=== PATIENT | male | born 1960 | race Caucasian/White ===

== ENCOUNTER 2020-04-06 15:05 | Outpatient (CLI) | payer OTHER, SELFPAY ==
[2020-04-06 15:54] LABS: Alanine Aminotransferase 194 U/L (4-50); Albumin Level 4.3 g/dL (3.5-5.1); Alkaline Phosphatase 169 U/L (38-126); Anion Gap 6 mmol/L (8-16); Aspartate Amino Transferase 115 U/L (17-59); Bilirubin,Total 1.3 mg/dL (0.2-1.3); Blood Urea Nitrogen 13 mg/dL (9-20); Carbon Dioxide 32 mmol/L (22-30); Chloride 98 mmol/L (98-107); Estimated Glomerular Filt Rate > 60; Glucose 353 mg/dL (75-110); Potassium 4.9 mmol/L (3.4-5.0); Sodium 136 mmol/L (137-145)
== END 2020-04-06 15:06 | disposition home or self-care (01) ==
PROVIDERS: PCP Family Medicine; Visit Provider Physician Assistant
DX: R73.01 Impaired fasting glucose (principal)
CPT/HCPCS: 36415; 80053

== ENCOUNTER 2020-04-13 09:23 | Outpatient (CLI) | payer OTHER, SELFPAY ==
[2020-04-13 09:54] LABS: Hemoglobin A1C 9.8 % (<5.7)
== END 2020-04-13 09:24 | disposition home or self-care (01) ==
LOC: ANHLAB 09:25
PROVIDERS: PCP Family Medicine; Visit Provider Physician Assistant
DX: E13.65 Other specified diabetes mellitus with hyperglycemia (principal)
CPT/HCPCS: 36415; 83036

== ENCOUNTER 2020-09-19 15:05 | Outpatient (CLI) | payer OTHER, SELFPAY ==
[2020-09-19 15:25] LABS: Basophils Absolute Auto 0.1 K/mm3 (0.0-0.1); Basophils Percent Auto 0.6 % (0.2-1.2); Eosinophils Absolute Auto 0.2 K/mm3 (0-0.3); Eosinophils Percent Auto 2.4 % (0-4.4); Hematocrit 46.2 % (42.0-52.0); Hemoglobin 15.2 g/dL (14.0-18.0); Immature Granulocyte Absolute 0.02 K/mm3 (0.00-0.031); Immature Granulocyte Percent A 0.2 % (0-0.5); Lymphocytes Absolute Auto 2.25 K/mm3 (0.9-3.2); Mean Corpuscular HGB Conc 32.9 g/dl (32-36); Mean Corpuscular Hemoglobin 24.7 pg (26-34); Mean Platelet Volume 10.2 fl (7.4-10.4); Monocytes Absolute Auto 0.9 K/mm3 (0.1-0.6); Monocytes Percent Auto 9.9 % (2.6-8.5); Neutrophils Absolute Auto 5.9 K/mm3 (1.3-6.7); Neutrophils Percent Auto 62.9 % (45.5-73.1); Platelet Count Result 181 k/mm3 (150-375); Red Blood Count 6.16 M/mm3 (4.6-6.20); Red Cell Distribution Width 14.9 % (11.5-14.5); White Blood Count 9.4 K/mm3 (4.5-10.0)
[2020-09-19 15:37] LABS: Prothrombin Time 13.4 Seconds (11.1-14.7)
[2020-09-19 15:38] LABS: Partial Thromboplastin Time 34.9 SECONDS (22.3-36.8)
== END 2020-09-19 15:06 | disposition home or self-care (01) ==
PROVIDERS: PCP Physician Assistant; Visit Provider Anesthesiology
DX: I25.10 Atherosclerotic heart disease of native coronary artery without angina pectoris (principal); M54.16 Radiculopathy, lumbar region; Z51.81 Encounter for therapeutic drug level monitoring; Z79.899 Other long term (current) drug therapy; R07.89 Other chest pain; Z00.00 Encounter for general adult medical examination without abnormal findings; Z79.1 Long term (current) use of non-steroidal anti-inflammatories (NSAID)
CPT/HCPCS: 36415; 85025; 85610; 85730

== ENCOUNTER 2021-03-09 11:44 | Outpatient (CLI) | payer OTHER, SELFPAY ==
[2021-03-09 12:12] LABS: Hematocrit 48.9 % (42.0-52.0); Hemoglobin 15.9 g/dL (14.0-18.0); Mean Corpuscular HGB Conc 32.5 g/dl (32-36); Mean Corpuscular Hemoglobin 26.1 pg (26-34); Mean Corpuscular Volume 80.2 fl (80-100); Mean Platelet Volume 10.2 fl (7.4-10.4); Platelet Count Result 150 k/mm3 (150-375); Red Cell Distribution Width 14.3 % (11.5-14.5); White Blood Count 7.8 K/mm3 (4.5-10.0)
[2021-03-09 12:25] LABS: Alanine Aminotransferase 25 U/L (4-50); Albumin Level 4.6 g/dL (3.5-5.1); Alkaline Phosphatase 96 U/L (38-126); Anion Gap 10 mmol/L (8-16); Aspartate Amino Transferase 26 U/L (17-59); Bilirubin,Total 0.9 mg/dL (0.2-1.3); Blood Urea Nitrogen 19 mg/dL (9-20); Calcium 9.8 mg/dL (8.4-10.2); Carbon Dioxide 25 mmol/L (22-30); Chloride 100 mmol/L (98-107); Estimated Glomerular Filt Rate > 60; Glucose 216 mg/dL (65-110); Potassium 3.9 mmol/L (3.4-5.0); Sodium 135 mmol/L (137-145)
[2021-03-13 20:36] LABS: Alpha Fetoprotein Tumor Marker 2.6 ng/mL (<6.1)
== END 2021-03-09 11:45 | disposition home or self-care (01) ==
PROVIDERS: PCP Physician Assistant
DX: B18.2 Chronic viral hepatitis C (principal)
CPT/HCPCS: 36415; 80053; 82105; 85027

== ENCOUNTER 2021-06-24 11:26 | Emergency (ER) | payer OTHER, SELFPAY ==
--- NOTE | ~2021-06-24 | XR_ITS ---
EXAMINATION: XR chest 2V DATE: 06/24/2021 12:55 INDICATION: Congestion. TECHNIQUE: Frontal and lateral views of the chest were obtained on 3 radiographs. COMPARISON: None. FINDINGS: The chest demonstrates clear lungs without pneumonia, pleural effusion, or pneumothorax. Th e heart size is normal. There are changes of anterior fusion procedure in cervical spine. IMPRESSION: 1. No acute cardiopulmonary disease. Reviewed, dictated and finalized at location B. [employer] PRO[employer] MANAGER
[2021-06-24 11:45] VITALS: BP 149/129; PULSE 102; RESP 18; TEMP 37.9; O2SAT 96
[2021-06-24 12:00] VITALS: BP 172/110
[2021-06-24 12:05] VITALS: PULSE 102; RESP 18; TEMP 37.9; O2SAT 99
[2021-06-24] MEDS: ACETAMINOPHEN 500 MG TABLET 1000 MG PO (12:05)
[2021-06-24] MEDS: IPRATROPIUM BR 0.02% INH SOLN 0.5 MG/2.5 ML VIAL INHALATION (12:15)
[2021-06-24] MEDS: ALBUTEROL SULFATE NEB 2.5 MG/3 ML INH INHALATION (12:15)
[2021-06-24] MEDS: predniSONE 20 MG TABLET 60 MG PO (12:32)
--- NOTE | 2021-06-24 12:33 | ED.URI ---
HPI - URI/Sore Throat General Chief Complaint: Upper Respiratory Infection Stated Complaint: Congestion Time Seen by Provider: 06/24/21 12:33 Source: patient, RN notes reviewed and old records reviewed Mode of arrival: ambulatory Limitations: no limitations History of Present Illness HPI Narrative: 60-year-old male presents to the [facility] with complaints of cough, shortness of breath. Has a history of chronic bronchitis and pneumonia. Denies chest pain or abdominal pain. Has not checked his temperature. Patient is currently a smoker. MD elicited complaint: fever and cough Related Data Allergies Allergy/AdvReac Type Severity Reaction Status Date / Time No Known Allergies Verified 06/24/21 11:41 Review of Systems Review of Systems: All systems reviewed & are unremarkable except as noted in HPI and below Constitutional: Constitutional: Reports no additional constitutional complaints, Denies chills and Denies fever(s) Eyes: Eyes: Reports no additional eye complaints ENT: Reports system reviewed and no additional complaints, except as documented Cardiovascular: Cardiovascular: Reports no additional cardiovascular complaints and Denies chest pain Respiratory: Respiratory: Reports as per HPI, Reports chest congestion, Reports cough, Reports dyspnea and Reports wheezing Gastrointestinal: Gastrointestinal: Reports no additional gastrointestinal complaints Genitourinary: Genitourinary: Reports no additional male genitourinary complaints Musculoskeletal: Musculoskeletal: Reports no additional musculoskeletal complaints Integumentary/Breasts: Skin/Breast: Reports system reviewed and no additional complaints, except as docu Neurologic: Reports system reviewed and no additional complaints, except as documented Psychiatric: Psychiatric: Reports no additional psychiatric complaints Allergic/Immunologic: Allergic/Immunologic: Reports no additional allergic/immunologic complaints PMFSH Past Medical History Medical History Acid reflux BMI 34.0-34.9,adult Chronic GERD Chronic left shoulder pain Chronic neck pain with history of cervical spinal surgery Colon cancer screening Elevated serum glucose Hepatitis C History of alcoholism History of anemia History of hepatitis C History of illicit drug use Hypertension Hypogonadism in male Lung nodule Narcotic dependence, episodic use Osteoarthritis of both knees Peptic ulcer disease Primary hypertension Prostate cancer screening Tobacco abuse Surgical History Surgical History Hx of cervical spine surgery Hx of knee surgery Hx of shoulder surgery Left & Right Shoulders Family History Family History Father Diabetes mellitus Mother Cancer Social History Social History Smoking status: Current every day smoker Tobacco type: cigarettes Alcohol intake: former Alcohol use details: stopped drinking in 2007 Substance use: former Substance use type: former substance user Last use: 2007 Gender identity (if verbalized by the patient): Male Comments At the time of my signature, I reviewed and agree with the nursing past medical, surgical, social, and family history. There is no relevant family history pertinent to the patient complaint. Exam Const: General: ill appearing acutely and chronically Nutritional Appearance: well nourished Orientation/consciousness: patient oriented x3 Limitations: no limitations HENMT: Head: normal to inspection Ears: external ears normal, TM's normal bilaterally and EAC's normal Eyes: Pupils: Equal, round and reactive pupils present Neck: Neck: normal visual inspection, no lymphadenopathy and no meningeal signs Chest: Chest palpation & inspection: normal inspection of the chest Resp: Effort & Inspection: normal
[2021-06-24 12:45] VITALS: PULSE 100; RESP 18; O2SAT 99
[2021-06-24 13:20] VITALS: TEMP 37.6
== END 2021-06-24 13:25 | disposition home or self-care (01) ==
PROVIDERS: Emergency Provider Nurse Practitioner; PCP Family Medicine
DX: J40 Bronchitis, not specified as acute or chronic (principal); F17.210 Nicotine dependence, cigarettes, uncomplicated; K21.9 Gastro-esophageal reflux disease without esophagitis; I10 Essential (primary) hypertension; M17.0 Bilateral primary osteoarthritis of knee
CPT/HCPCS: 71046; 87804; 94640; 99213; A9270; G0463; J7512

== ENCOUNTER 2021-09-25 09:32 | Outpatient (RCR) | payer OTHER, SELFPAY ==
[2021-09-25 09:41] VITALS: BMI 34.7
[2021-09-25 09:46] VITALS: BMI 34.7
== END 2021-12-11 07:22 | disposition home or self-care (01) ==
LOC: ANHDMC 09:32
PROVIDERS: PCP Family Medicine; Visit Provider Physician Assistant
DX: E11.65 Type 2 diabetes mellitus with hyperglycemia (principal); Z71.3 Dietary counseling and surveillance
CPT/HCPCS: 97802; 99199

== ENCOUNTER 2021-10-09 13:38 | Emergency (ER) | payer OTHER, SELFPAY ==
[2021-10-09 13:46] VITALS: BP 141/94; PULSE 86; RESP 16; TEMP 36.7; O2SAT 98
--- NOTE | 2021-10-09 13:47 | ED.ABDPAIN ---
HPI - Abdominal Pain General Chief Complaint: Abdominal Pain Stated Complaint: abd pain Time Seen by Provider: 10/09/21 13:48 Source: patient Mode of arrival: ambulatory Limitations: no limitations History of Present Illness HPI narrative: 60-year-old male with history of high blood pressure, diabetes, hepatitis C presents with complaint of epigastric, left upper quadrant and left lower quadrant pain for the last 2 to 3 weeks. Reports diarrhea that has been black then bright red blood and diarrhea and then back to having black stools. He reports decreased appetite and states that her abdomen feels bloated. Today today he has been dizzy, nauseated and sweating. All systems reviewed and negative except as noted above. Related Data Allergies Allergy/AdvReac Type Severity Reaction Status Date / Time No Known Allergies Allergy Verified 10/09/21 14:04 Review of Systems Review of Systems: CONSTITUTIONAL: Denies fever, chills, or sweats. EYES: Denies visual changes, redness, or discharge. ENT: Denies rhinorrhea, congestion, sore throat, or otalgia. CARDIOVASCULAR: Denies chest pain, palpitations, or edema. RESPIRATORY: Denies cough or dyspnea. GASTROINTESTINAL: Reports abdominal pain, nausea and diarrhea. Reports black, bright red blood stools. Denies vomiting. GENITOURINARY: Denies dysuria or hematuria. SKIN: Denies rash or itching. MUSCULOSKELETAL: Denies back pain, joint pain, or myalgia. NEUROLOGIC: Denies headache, numbness, or weakness. PSYCHIATRIC: Denies anxiety or depression. All other systems reviewed are negative, except as documented in HPI. [facility] Past Medical History Medical History Acid reflux BMI 34.0-34.9,adult Chronic GERD Chronic left shoulder pain Chronic neck pain with history of cervical spinal surgery Colon cancer screening Elevated serum glucose Hepatitis C History of alcoholism History of anemia History of hepatitis C History of illicit drug use Hypertension Hypogonadism in male Lung nodule Narcotic dependence, episodic use Osteoarthritis of both knees Peptic ulcer disease Primary hypertension Prostate cancer screening Tobacco abuse Surgical History Surgical History Hx of cervical spine surgery Hx of knee surgery Hx of shoulder surgery Left & Right Shoulders Family History Family History Father Diabetes mellitus Mother Cancer Social History Social History Tobacco type: cigarettes Alcohol intake: former Alcohol use details: stopped drinking in 2007 Substance use: former Substance use type: former substance user Last use: 2007 Gender identity (if verbalized by the patient): Male Spiritual care concerns: No Comments At time of signature, agree with nursing past medical, surgical, social and family history. There is no relevant family history pertinent to the presenting complaint. Exam Narrative: GENERAL: Patient is ill-appearing but in no distress. Patient is pale. HEAD: normocephalic, atraumatic. EYES: PERRL. Sclera clear/white. Vision is grossly intact. EARS: External ears normal, auditory canals clear and without drainage, TMs normal without perforation. Hearing grossly intact. NOSE: External nose normal with no obvious nasal discharge, nares without redness, no rhinorrhea. THROAT: Mucous membranes moist, posterior pharynx clear. NECK: Neck supple, non-tender without lymphadenopathy, masses or thyromegaly. CARDIOVASCULAR: Regular rate and rhythm without murmurs, gallops, or rubs. RESPIRATORY: Clear to auscultation. Breath sounds equal bilaterally. No wheezes, rales, or rhonchi. GASTROINTESTINAL: Abdominal tenderness to epigastric, left upper quadrant and left lower quadrant. Bowel sounds are active. No hepato-splenomegaly, or palpable masses.
== END 2021-10-09 14:03 | disposition short-term general hospital (02) ==
PROVIDERS: Emergency Provider Nurse Practitioner Family
DX: R10.13 Epigastric pain (principal); R10.12 Left upper quadrant pain; R10.32 Left lower quadrant pain; K92.1 Melena; Z87.891 Personal history of nicotine dependence; K21.9 Gastro-esophageal reflux disease without esophagitis; I10 Essential (primary) hypertension; M17.0 Bilateral primary osteoarthritis of knee
CPT/HCPCS: 99212; G0463

== ENCOUNTER 2021-10-09 14:21 | Emergency (ER) | payer OTHER, SELFPAY ==
--- NOTE | ~2021-10-09 | CT_ITS ---
EXAMINATION: CT abdomen pelvis w con EXAM DATE: 10/09/2021 16:45 INDICATION: Abdominal pain, N/V/D, cirrhosis . History of bleeding ulcers. Diarrhea. TECHNIQUE: Spiral CT of the abdomen and pelvis was performed following intravenous injection of 100 m L Omnipaque 350. Axial, coronal and sagittal images of the abdomen and pelvis were reviewed. The do se-length product (DLP) for this examination was 1427.36 mGy-cm. The exposure was tailored according to patient size (auto mA exposure control), and iterative reconstruction (ASIR) was used as addition al dose reduction technique. There is no prior study for comparison. FINDINGS: There is mild splenomegaly, spleen measuring 16 cm in craniocaudal dimension. This could be from portal hypertension. Some other evidence of portosystemic shunting. The liver, adrenal glands a nd pancreas are unremarkable. Gallbladder is unremarkable. No biliary obstruction. Portal and sple wagner veins are patent. Kidneys enhance symmetrically. There is no hydronephrosis. Scattered small re nal cysts bilaterally. Mild prostatomegaly. The bladder is unremarkable. There is no retroperitone al or pelvic lymphadenopathy. There is mild scattered arteriosclerotic disease. The appendix is normal. There is small to moderate-sized gastroesophageal hiatal hernia. There is c olonic fluid, correlate for diarrhea. No colonic wall thickening. No free intraperitoneal gas. Th e heart is normal in size. There are no pericardial or pleural effusions. The lung bases are unrema rkable. Several vertebral body hemangiomata suspected. Thoracic diffuse idiopathic skeletal hyperost osis. IMPRESSION: 1. Colonic fluid, diarrhea. Consider gastroenteritis. 2. Mild splenomegaly. Portal hypertension. 3. Small to moderate hiatal hernia. Reviewed, dictated and finalized at location A. PMENT MECHANIC SPECIALIST
[2021-10-09 14:27] VITALS: BP 144/99; PULSE 92; RESP 18; TEMP 36.8; O2SAT 98
--- NOTE | 2021-10-09 14:38 | PC.NURSE ---
pt reports that he is worried his my be possibly putting drugs in his system. wanting a drug screen done.
[2021-10-09 15:06] LABS: Add Urine Microscopic? YES; Appearance Urine Clear (Clear); Bacteria Urine Trace /hpf; Bilirubin Urine Negative (Negative); Blood Urine Negative (Negative); Color Urine Yellow (Yellow); Glucose Urine UA 3+ mg/dL (Negative); Ketones Urine Negative (Negative); Leukocyte Esterase Ur Negative LEU/UL (Negative); Mucus Urine Rare /lpf; Nitrate Urine Negative (Negative); Protein Urine Negative (Negative); RBC Urine 0-2 /hpf (0-2); Squamous Epithelial Cell Urine Rare /hpf (Few); Urobilinogen Urine Negative mg/dL (<2.0); WBC Urine 0-3 /hpf
[2021-10-09 15:07] LABS: Amphetamine Screen Urine Negative (Negative); Barbiturate Screen Urine Negative (Negative); Benzodiazepines Screen Urine Negative (Negative); Cannabinoid Screen Urine Positive (Negative); Cocaine Screen Urine Negative (Negative); Methadone Screen Urine Negative (Negative); Opiate Screen Urine Positive (Negative); Phencyclidine Screen Urine Negative (Negative)
[2021-10-09 15:09] LABS: Specific Grav Ur 1.032 (1.001-1.035)
--- NOTE | 2021-10-09 15:51 | ED.ABDPAIN ---
HPI - Abdominal Pain General Chief Complaint: Abdominal Pain Stated Complaint: Abd pain Time Seen by Provider: 10/09/21 15:09 Source: patient Mode of arrival: ambulatory Limitations: no limitations History of Present Illness HPI narrative: Patient is a 60-year-old male, with a past medical history of hypertension, diabetes, peptic ulcer disease, and liver cirrhosis, who presents to the ED with complaints of abdominal pain and rectal bleeding. Patient reports he first developed epigastric abdominal pain 2 weeks ago, which felt like his previous ulcer pain. He reports having dark black stool for 1 week with the abdominal pain. He then had 2 days of bright red rectal bleeding and another couple days of dark black stool. He does mention he took Pepto-Bismol for his symptoms, but he had experienced black stool prior to taking this. He reports having watery brown diarrhea today, with no further bright red bleeding. Patient also developed nausea/vomiting and increased abdominal bloating today after eating, at which point he decided to present to the ED. Patient denies any fever, chills, recent constipation, urinary symptoms, chest pain, shortness of breath, back pain. He has never been seen by GI specialist for his ulcers, he states he has had multiple scopes in the past. He does take a probiotic on occasion. He has never had a colonoscopy. Patient is a former alcoholic. He has not drank in 14 years. He denies any recent NSAID use. Related Data Home Medications Medication Instructions Recorded Confirmed empagliflozin [Jardiance] 10 mg PO DAILY 10/09/21 10/09/21 hydrocodone-acetaminophen 1 tablet PO HS PRN 10/09/21 Allergies Allergy/AdvReac Type Severity Reaction Status Date / Time No Known Allergies Allergy Verified 10/09/21 14:04 Review of Systems Review of Systems: CONSTITUTIONAL: Denies fever, chills, or sweats. ENT: Denies rhinorrhea, congestion. CARDIOVASCULAR: Denies chest pain. RESPIRATORY: Denies cough or dyspnea. GASTROINTESTINAL: Reports abdominal pain and bloating, nausea, vomiting, diarrhea, melena, rectal bleeding. GENITOURINARY: Denies dysuria or hematuria. MUSCULOSKELETAL: Denies back pain, joint pain, or myalgia. NEUROLOGIC: Denies headache, numbness, or weakness. All systems reviewed & are unremarkable except as noted in HPI and below PMFSH Past Medical History Medical History (Updated 10/09/21 @ 18:41 by Tamar Norton PA-C) Acid reflux BMI 34.0-34.9,adult Chronic GERD Chronic left shoulder pain Chronic neck pain with history of cervical spinal surgery Cirrhosis Colon cancer screening Elevated serum glucose Hepatitis C History of alcoholism History of anemia History of hepatitis C History of illicit drug use Hypertension Hypogonadism in male Lung nodule Narcotic dependence, episodic use Osteoarthritis of both knees Peptic ulcer disease Primary hypertension Prostate cancer screening Tobacco abuse Surgical History Surgical History Hx of cervical spine surgery Hx of knee surgery Hx of shoulder surgery Left & Right Shoulders Family History Family History Father Diabetes mellitus Mother Cancer Social History Social History Tobacco type: cigarettes Alcohol intake: former Alcohol use details: stopped drinking in 2007 Substance use: former Substance use type: former substance user Last use: 2007 Gender identity (if verbalized by the patient): Male Spiritual care concerns: No Exam Narrative: GENERAL: Well appearing, well-nourished, non-toxic, in no acute distress. HEAD: Normocephalic, atraumatic. NECK: Supple. No adenopathy, no masses. RESPIRATORY: Airway patent, respirations nonlabored. Clear to auscultation bilaterally, no rales, rhonchi, wheezing. CARDIOVASCULAR: Regular rate and rhythm witho
[2021-10-09 16:17] LABS: Basophils Absolute Auto 0.1 K/mm3 (0.0-0.1); Basophils Percent Auto 0.4 % (0.2-1.2); Eosinophils Absolute Auto 0.2 K/mm3 (0-0.3); Eosinophils Percent Auto 1.4 % (0-4.4); Hematocrit 49.6 % (42.0-52.0); Hemoglobin 17.1 g/dL (14.0-18.0); Immature Granulocyte Absolute 0.05 K/mm3 (0.00-0.031); Immature Granulocyte Percent A 0.4 % (0-0.5); Lymphocytes Absolute Auto 0.76 K/mm3 (0.9-3.2); Lymphocytes Percent Auto 6.3 % (18.3-44.2); Mean Corpuscular HGB Conc 34.5 g/dl (32-36); Mean Corpuscular Hemoglobin 26.7 pg (26-34); Mean Corpuscular Volume 77.5 fl (80-100); Mean Platelet Volume 10.6 fl (7.4-10.4); Monocytes Absolute Auto 1.1 K/mm3 (0.1-0.6); Monocytes Percent Auto 8.7 % (2.6-8.5); Neutrophils Percent Auto 82.8 % (45.5-73.1); Platelet Count Result 161 k/mm3 (150-375); Red Cell Distribution Width 15.4 % (11.5-14.5); White Blood Count 12.1 K/mm3 (4.5-10.0)
[2021-10-09] MEDS: SODIUM CHLORIDE 0.9% IV 1,000 ML 999 ML IV CONT (16:23)
[2021-10-09] MEDS: ONDANSETRON INJ 4 MG/2 ML VIAL IV PUSH (16:24)
[2021-10-09 16:28] LABS: Alanine Aminotransferase 27 U/L (4-50); Albumin Level 4.9 g/dL (3.5-5.1); Alkaline Phosphatase 100 U/L (38-126); Anion Gap 5 mmol/L (8-16); Aspartate Amino Transferase 33 U/L (17-59); Bilirubin,Total 1.7 mg/dL (0.2-1.3); Blood Urea Nitrogen 20 mg/dL (9-20); Calcium 9.4 mg/dL (8.4-10.2); Carbon Dioxide 28 mmol/L (22-30); Chloride 104 mmol/L (98-107); Estimated CRCL calculation 128 ml/min; Estimated Glomerular Filt Rate > 60; Glucose 156 mg/dL (65-110); Lipase 69 U/L (23-300); Potassium 4.2 mmol/L (3.4-5.0); Sodium 137 mmol/L (137-145)
[2021-10-09 16:47] VITALS: BP 145/109; PULSE 90; RESP 25; O2SAT 99
[2021-10-09 17:02] VITALS: BP 153/106; PULSE 88; RESP 20; O2SAT 96
[2021-10-09 17:16] VITALS: BP 159/104; PULSE 83; RESP 22; O2SAT 96
[2021-10-09] MEDS: MORPHINE SULFATE (*CRX) 4 MG/ML INJ IV PUSH (17:52)
[2021-10-09 18:20] VITALS: BP 139/96; PULSE 87; RESP 16; O2SAT 100
== END 2021-10-09 18:20 | disposition home or self-care (01) ==
PROVIDERS: Emergency Medicine; Emergency Provider Emergency Medicine; PCP Family Medicine
DX: K52.9 Noninfective gastroenteritis and colitis, unspecified (principal); Z87.11 Personal history of peptic ulcer disease; I10 Essential (primary) hypertension; F17.210 Nicotine dependence, cigarettes, uncomplicated
CPT/HCPCS: 36415; 74177; 80053; 80307; 81001; 83690; 85025; 96361; 96374; 96375; 99284; J2270; J2405; J7030; Q9967

== ENCOUNTER 2022-08-06 08:29 | Outpatient (CLI) | payer OTHER, SELFPAY ==
--- NOTE | ~2022-08-06 | US_ITS ---
Limited Abdominal Sonogram: Real-time sonographic imaging of the right upper quadrant was performed. Clinical History: Cirrhosis Findings: The liver appears echogenic, with no evidence of mass lesion or bile duct dilatation. Main portal vein demonstrates normal direction of flow. The gallbladder is well distended, and appears no rmal with no evidence of gallstone or wall thickening. The common bile duct measures 5 mm. The visua lized pancreas, aorta, and IVC are unremarkable. Impression: Diffuse fatty infiltration of the liver. Reviewed, dictated and finalized at location M. D SCOUT Impression: Diffuse fatty infiltration of the liver.
== END 2022-08-06 08:30 | disposition home or self-care (01) ==
PROVIDERS: PCP Family Medicine
DX: K74.69 Other cirrhosis of liver (principal)
CPT/HCPCS: 76705

== ENCOUNTER 2023-03-07 09:40 | Outpatient (CLI) | payer OTHER, SELFPAY ==
[2023-03-12 17:03] LABS: Testosterone Free 80.7 pg/mL (35.0-155.0); Testosterone Total 328 ng/dL (250-1100)
== END 2023-03-07 09:41 | disposition home or self-care (01) ==
PROVIDERS: PCP Family Medicine; Visit Provider Family Medicine
DX: E29.1 Testicular hypofunction (principal)
CPT/HCPCS: 36415; 84402; 84403

== ENCOUNTER 2023-04-15 10:41 | Emergency (ER) | payer OTHER, SELFPAY ==
[2023-04-15 10:53] VITALS: BP 149/109; PULSE 97; RESP 16; TEMP 37.8; O2SAT 98
--- NOTE | 2023-04-15 11:13 | ED.URI ---
HPI - URI/Sore Throat General Chief Complaint: Upper Respiratory Infection Stated Complaint: Sinus Time Seen by Provider: 04/15/23 11:13 Source: patient Mode of arrival: ambulatory Limitations: no limitations History of Present Illness HPI Narrative: 62-year-old male presents with complaint of chest congestion, cough, fatigue, body aches, hoarse voice for 5-6 days. Afebrile. Began feeling short of breath this morning. Patient reports history of pneumonia. Is concerned he needs antibiotic. Patient does not smoke but reports secondhand smoke exposure due to Vaping. patient taking Sudafed and Mucinex to treat symptoms. All systems reviewed and negative except as noted above. Related Data Home Medications Medication Instructions Recorded Confirmed empagliflozin 10 mg tablet 10 mg PO DAILY 10/09/21 04/15/23 (Jardiance) hydrocodone 7.5 mg-acetaminophen 1 tablet PO HS PRN Pain 10/09/21 04/15/23 325 mg tablet dextroamphetamine-amphetamine 20 1 tablet PO BID 04/15/23 04/15/23 mg tablet sildenafil 100 mg tablet 100 mg PO DAILY 04/15/23 04/15/23 testosterone cypionate 200 mg/mL See Rx Instructions .Route .COMPLEX 04/15/23 04/15/23 intramuscular oil tirzepatide 5 mg/0.5 mL 5 mg subcut DAILY 04/15/23 04/15/23 subcutaneous pen injector (Nora) tramadol 50 mg tablet 50 mg PO DAILY 04/15/23 04/15/23 Allergies Allergy/AdvReac Type Severity Reaction Status Date / Time No Known Allergies Allergy Verified 04/15/23 10:55 Review of Systems Review of Systems: CONSTITUTIONAL: Denies fever, chills, or sweats. reports fatigue. EYES: Denies visual changes, redness, or discharge. ENT: Reports rhinorrhea, congestion. Denies sore throat, or otalgia. CARDIOVASCULAR: Denies chest pain, palpitations, or edema. RESPIRATORY: Reports cough and dyspnea on exertion GASTROINTESTINAL: Denies abdominal pain, nausea, vomiting, or diarrhea. GENITOURINARY: Denies dysuria or hematuria. SKIN: Denies rash or itching. MUSCULOSKELETAL: Denies back pain, joint pain, or myalgia. NEUROLOGIC: Denies headache, numbness, or weakness. PSYCHIATRIC: Denies anxiety or depression. All other systems reviewed are negative, except as documented in HPI. [facility] Past Medical History Medical History (Updated 04/15/23 @ 11:25 by Ayana Navarro NP) Acid reflux BMI 34.0-34.9,adult Chronic GERD Chronic left shoulder pain Chronic neck pain with history of cervical spinal surgery Cirrhosis Colon cancer screening Elevated serum glucose Hepatitis C History of alcoholism History of anemia History of hepatitis C History of illicit drug use Hypertension Hypogonadism in male Lung nodule Narcotic dependence, episodic use Osteoarthritis of both knees Peptic ulcer disease Primary hypertension Prostate cancer screening Tobacco abuse Surgical History Surgical History Hx of cervical spine surgery Hx of knee surgery Hx of shoulder surgery Left & Right Shoulders Family History Family History Father Diabetes mellitus Mother Cancer Social History Social History Tobacco type: cigarettes Alcohol intake: former Alcohol use details: stopped drinking in 2007 Substance use: former Substance use type: former substance user Last use: 2007 Gender identity (if verbalized by the patient): Male Spiritual care concerns: No Comments At time of signature, agree with nursing past medical, surgical, social and family history. There is no relevant family history pertinent to the presenting complaint. Exam Narrative: GENERAL: This is a well-nourished, well-developed patient, in no apparent distress. HEAD: normocephalic, atraumatic. EYES: PERRL. Sclera clear/white. Vision is grossly intact. EARS: External ears normal, auditory canals clear and with
== END 2023-04-15 11:28 | disposition home or self-care (01) ==
PROVIDERS: Emergency Provider Nurse Practitioner Family; PCP Family Medicine
DX: R05.1 Acute cough (principal); K21.9 Gastro-esophageal reflux disease without esophagitis; K74.60 Unspecified cirrhosis of liver; I10 Essential (primary) hypertension; M17.0 Bilateral primary osteoarthritis of knee
CPT/HCPCS: 99213; G0463

== ENCOUNTER 2023-04-28 18:32 | Emergency (ER) | payer OTHER, SELFPAY ==
--- NOTE | ~2023-04-28 | US_ITS ---
EXAMINATION: US scrotum doppler DATE: 04/28/2023 19:37 INDICATION: pain . TECHNIQUE: Grayscale and Doppler ultrasound images of the testes were obtained. COMPARISON: None. FINDINGS: The right testis measures 4.1 x 2.1 x 2.6 cm. The left testis measures 3.8 x 2.3 x 2.7 cm. Somewhat heterogeneous echogenicity in the testicles, slightly more so on the left. No testicular mas s. There is vascular flow to both testes, slightly increased on the left. The right epididymis measur es 1.2 x 1.3 x 1.1 cm, has normal vascular flow, and contains a 1 cm cystic structure with minimal de bris. The left epididymis 0.9 x 0.8 x 0.8 cm, normal vascular flow. Small left hydrocele with debris. IMPRESSION: Slightly increased vascular flow and heterogeneous echogenicity in the left testicle, correlate for f indings of infection/or orchitis. 1 cm right epididymal cyst/spermatocele. Small left hydrocele with debris Reviewed, dictated and finalized at location K. IMPRESSION: Slightly increased vascular flow and heterogeneous echogenicity in the left linda ticle, correlate for findings of infection/or orchitis. 1 cm right epididymal cyst/spermatocele. Small left hydrocele with debris
[2023-04-28 18:48] VITALS: BP 156/98; PULSE 110; RESP 18; TEMP 37.2; O2SAT 96
== END 2023-04-28 22:33 | disposition left against medical advice (07) ==
LOC: ANHED 22:31
PROVIDERS: Emergency Provider Emergency Medicine; PCP Family Medicine
DX: N50.812 Left testicular pain (principal); N50.811 Right testicular pain
CPT/HCPCS: 76870; 93976; 99199

== ENCOUNTER 2025-01-13 15:16 | Outpatient (CLI) | payer OTHER, SELFPAY ==
--- NOTE | ~2025-01-13 | XR_ITS ---
XR chest 2V 01/13/2025 15:44 Indication: Pleuritic chest pain Procedure: 2 view chest Comparison: 06/24/2021 Findings: Heart size normal. There is mild ectasia of the aorta. No focal air space disease, pulmonar y edema, pleural effusion or suspected pneumothorax. No acute osseous abnormality. There is thoracic spondylosis with accentuated kyphosis. Mild chronic wedge deformities of multiple lower thoracic vert ebra. Impression: 1: No acute cardiopulmonary disease. Reviewed, dictated and finalized at location B. Impression: 1: No acute cardiopulmonary disease.
--- OUTSIDE RECORDS SUMMARY | 2025-01-13 15:22 | XMS_ITS | Referral Summary ---
Author Organization [facility] Physician Of [facility] [address] [place] [id number] Care Team Providers Care Design Architect Name Role Phone Tonny Youssef MD Primary Care Provider Allergies No known active allergies Medications amLODIPine (NORVASC) 5 mg tablet Take 5 mg by mouth daily Active omeprazole (PriLOSEC) 40 mg capsule Take 40 mg by mouth daily Active empagliflozin (JARDIANCE) 10 mg tabletIndicatio ns:type 2 diabetes mellitus 10 mg daily Active glimepiride (AMARYL) 1 mg tabletIndicatio ns:type 2 diabetes mellitus Take 1 mg by mouth daily before breakfast Active lisinopriL (PRINIVIL,ZESTR IL) 40 mg tablet Take 40 mg by mouth daily 2 Active metoprolol XL (TOPROL-XL) 25 mg extended release tablet Take 25 mg by mouth daily 2 Active albuterol HFA (PROVENTIL HFA,VENTOLIN HFA,PROAIR HFA) 90 mcg/actuation inhaler INHALE 2 PUFFS BY MOUTH 4 TIMES DAILY NEEDED FOR SHORTNESS OF BREATH/WHEEZING 1 Active testosterone cypionate 200 mg/mL kit Inject 200 mg into the muscle as instructed every 14 (fourteen) days Active sod picosulf-mag ox-citric ac (Clenpiq) 10 mg-3.5 gram- 12 gram/160 mL solution Take 1 kit by mouth as directed 320 mL 3 Active Active Problems Problem Noted Date Diagnosed Date Encounter for screening colonoscopy 10/22/2022 Overview (10/22/2022): Added automatically from request for surgery [id number] Encounter for medical examination to establish c are 10/22/2022 Assessment & Plan (10/22/2022 3:00 PM CDT): A(n) initial well visit to establish care has been performed today. Gibson Marie is not up to date on screening tests. He is in need of Diabetic eye exam, Prostate screening, Colon cancer screening, Diabetic kidney disease screening and Cholesterol screening. He is not up to date on needed preventative vaccinations; He is in need of Pneumonia (Prevnar-13 or Pneumovax-23) and Zoster. We discussed healthy lifestyle habits, educational material has been given. Medications reviewed, changes documented as per the medical record and discussed with patient along with risks vs benefits. Awaiting labs Discussed pain referral; given the documented history we will try to make sure we stay away from street sources, but I'd like to see what Dr. Patel says about other options Continuing current regimen Return in 3 months Morbid (severe) obesity due to excess calories 0 10/16/2022 Assessment & Plan (10/22/2022 3:00 PM CDT): BMI Follow-up includes: nutrition counseling, exercise counseling and education provided. Hypertension 10/16/2022 Acid reflux 10/16/2022 Arthritis 10/16/2022 Diabetes mellitus type 2 in obese 10/16/2022 Liver fibrosis 10/10/2020 Assessment & Plan (10/10/2020 2:06 PM SIGN ERECTOR): Stage 3 on elastography Will refer to hepatology for follow up Remains sober Limit acetaminophen intake Umbilical hernia without obstruction and without gangrene 06/01/2019 Overview (06/01/2019): Added automatically from request for surgery [id number] Resolved Problems Problem Noted Date Diagnosed Date Resolved Date Chronic hepatitis C with hep atic coma (CMS/HCC) 05/02/2020 05/20/2022 Assessment & Plan (06/13/2020 5:06 PM SIGN ERECTOR): Hepatitis C genotype 2 with VL of 2,361,505 UI/ml (05/02/2020), and F4 score on fibrosure, but Child A and no signs of decompensation - started Mavyret on 05/24 - pending US -elastography to evaluate for occupying lesions and confirm F4 fibrosis. PLAN - Continue mavyret as planned - Will test for SVR 3 months after completed therapy. - will provide Flu shot - First dose of Twinrix --will need to return in one and six months to complete the vaccination schedule. - If advanced fibrosis is confirmed, he'll need Hepatology follow-up. RTC in 18 weeks for test SVR. Assessment & Plan (05/02/2020 12:43 PM CDT): - will get further work up to determine best treatment option. In the absence of complications/fibrosis from chronic HCV, or drug-drug interaction, would favor an 8-week course of Mavyret as the first option for this treatment-naive patient. Immunizations Immunization Administration Dates Next Due Hep A / Hep B 07/10/2021,10/10/2020,06/13/2020 Influenza, Quadrivalent, Chantelle l Culture-based MDCK, Preservative Free, Antibiotic Free, Intramuscular 06/13/2020 Influenza, Quadrivalent, Spl it, Preservative Free, Intramuscular 05/10/2021 Pneumococcal Conjugate PCV 13 07/10/2021 Tdap 10/10/2020 Social History Tobacco Use Types Packs/Day Years Used Date Smoking Tobacco: Former Cigarettes 0.3 40 1 982 - 2021 Smokeless Tobacco: Never Tobacco Cessation:Counseling Given: Not Answered Comments:Using Chantix and doing well, instructed not to smoke for 24 hrs prior to surgery. Alcohol Use Standard Drinks/Week Comments Not Currently 0 (1 standard drink = 0.6 oz pur e alcohol) Sober 13 yrs (as of 2019) AUDIT-C Answer Date Recorded Q1: How often do you have a drink containing alcohol? Never 10/16/2022 Q2: How many drinks containi ng alcohol do you have on a typical day when you are drinking? Patient does not drink Q3: How often do you have si x or more drinks on one occasion? 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 Not on file Not on file Last Filed Vital Signs Vital Sign Reading Time Taken Comments Blood Pressure 138/80 10/16/2022 10:54 AM CDT Pulse 80 10/16/2022 10:54 AM CDT Temperature 37 C (98.6 F) 10/16/2022 10:54 AM CDT Respiratory Rate 6 06/23/2019 1:00 PM SIGN ERECTOR Oxygen Saturation 98% 10/16/2022 10: 54 AM CDT Inhaled Oxygen Concentration - - Weight 136.5 kg (300 lb 14.4 oz) 2022 10:54 AM CDT Height 193 cm (6' 4) 10/16/2022 10:54 AM CDT Body Mass Index 36.63 10/16/2022 10:54 AM CDT Plan of Treatment Not on file Medical Devices Implanted Type Area Preschool Principal Device Identifier Shelf Expiration Date Model / Serial / Lot [employer]/C R Bard [id number] Ventralex Sepra Sorbaflex 1.7in Monofilament Self Expand Strap - [id number] Implanted:Qty: 1 on 06/23/2019 by Tucker Del Rio MD at [facility] N/A: Umbilical [employer]/C R Bard [id number] 04/30/2021 [id number] / / [id number] Procedures Procedure Name Priority Date/Time Associated Diagnosis Comments EGFR Routine 09/10/2021 11:39 AM SIGN ERECTOR Compensated HCV cirrhosis (HCC) HEPATITIS C RNA, QUANTITATIVE, PCR Routine 07/10/2021 11:28 AM SIGN ERECTOR Chronic hepatitis C with hepatic coma (HCC) from Last 3 Months or Most Recently Relevant to Health Maintenance Results * eGFR (09/10/2021 11:39 AM SIGN ERECTOR) eGFR >90 90 - 130 mL/min/1. 73 m2 [facility] Comment: Interpretive Data Reference Interval Normal >/= 90 mL/min/1.73m2 Mildly decreased* 60 - 89 mL/min/1.73m2 Mildly to moderately decreased 45 - 59 mL/min/1.73m2 Moderately to severely decreased 30 - 44 mL/min/1.73m2 Severely decreased 15 - 29 mL/min/1.73m2 Kidney Failure < 15 mL/min/1.73m2 *Relative to young adult level Estimated glomerular filtration rate is determined by the 2020 CKD-EPI equation recommended by the National Kidney Foundation (A Unifying Approach to GFR Estimation: Recommendations of the NKF-ASK Task Force on Reassessing the Inclusion of Race in Diagnosing Kidney Disease, JASN 2020). The CKD-EPI equation should not be used for patients with unstable renal function and has not been validated in children and those over 70. Current interpretive data was last reviewed 2021. Blood 09/10/2021 11:3 9 AM SIGN ERECTOR 09/10/2021 1:47 PM SIGN ERECTOR us Domingo Hein MD LAB BLOOD OR DERABLES Final Result [facility] Department [place] [address] * Hepatitis C (HCV) RNA PCR, quantitative (07/10/2021 11:28 AM SIGN ERECTOR) [facility] HCV RNA result Not Detected [facility] Comment: The quantifiable range of this assay is 15 IU/mL to 100,000,000 IU/mL (1.18 log IU/mL to 8.00 log IU/mL). Testing was performed by the DIANN 6800 HCV Test ([employer] Testing performed at [facility] Current Interpretive Data was last revised on 2021 Blood 07/10/2021 11:2 8 AM SIGN ERECTOR 07/10/2021 4:13 PM SIGN ERECTOR us Daisy FRANCOIS LAB MICROBIOLOGY - GENERAL ORDERABLES Final Result [facility] Department [place] [address] from Last 3 Months or Most Recently Relevant to Health Maintenance Insurance [facility] Care Teams Design Architect Relationship Specialty Start Date End Date Tonny Youssef MD PCP - General Family Medicine 12/02/22
--- OUTSIDE RECORDS SUMMARY | 2025-01-13 15:22 | XMS_ITS ---
Author Organization [facility] Care Team Providers Care Client Retention Specialist Name Role Phone Tj Sánchez Unavailable Unavailable Allergies and adverse reactions No Known Allergies Care Team Name Role Address Phone Organization Dates Tj Sánchez PCP [address], [place], [place], [id number], [place] (Office): [phone] [facility] 12/08/2012 - 12/08/2012 Reason for Referral No Reasons for Referral Entered Social History Social History Observation Description Start Date End Date Code Code System Current Smoking Status Tobacco smoking consumption unknown 210121820 SNOMED CT Sex Assigned At Male 1960 [address]204-3 [facility] Gender Identity
--- OUTSIDE RECORDS SUMMARY | 2025-01-13 15:22 | XMS_ITS | Clinical Summary ---
Author Organization [facility] Physician Of [facility] [address] [place] [phone] Care Team Providers Care Superannuation Funds Manager Name Role Phone Tonny Youssef MD Primary Care Provider [phone] Allergies No known active allergies Medications amLODIPine [...] (10/22/2022): Added automatically from request for surgery [id number] Encounter for medical examination to establish c [...] 10/10/2020 Assessment & Plan (10/10/2020 2:06 PM SEAFOOD AND SERVICE MEAT MANAGER): Stage 3 on elastography Will refer to hepatology for follow up Remains sober Limit acetaminophen intake Umbilical hernia without obstruction and without gangrene 06/01/2019 Overview (06/01/2019): Added automatically from request for surgery [id number] Resolved Problems Problem Noted Date Diagnosed Date Resolved Date Chronic hepatitis C with hep atic coma (CMS/HCC) 05/02/2020 05/20/2022 Assessment & Plan (06/13/2020 5:06 PM SEAFOOD AND SERVICE MEAT MANAGER): Hepatitis C genotype 2 with VL of [...] Pneumococcal Conjugate PCV 13 07/10/2021 Tdap 10/10/2020 Surgical History Surgery Date Site/Laterality Comments KNEE SURGERY 2 on right, 1 on left SHOULDER SURGERY right x1, left recon & scope x2 NECK SURGERY plates cervical fusion ROTATOR CUFF REPAIR Left Medical History Medical History Date Comments Hypertension Acid reflux Arthritis Umbilical hernia without obstruction or gangrene Infectious viral hepatitis Hep C Chronic hepatitis C with hepatic coma (HCC) 04/05 Cirrhosis (HCC) Diabetes mellitus type 2 in obese Family History Medical History Relation Name Comments No Known Problems Brother Diabetes Father Hypertension Father Cancer Mother No Known Problems Sister Relation Name Status Comments Brother Father Mother Sister Social History Tobacco Use Types Packs/Day Years [...] e alcohol) Sober 13 yrs (as of 2018) AUDIT-C Answer Date Recorded Q1: How often [...] on file Legal Sex Male 1:05 PM SEAFOOD AND SERVICE MEAT MANAGER Gender Identity Male 09/27/2019 8:21 AM SEAFOOD AND SERVICE MEAT MANAGER Sexual Orientation Straight 09/27/2019 8: 21 AM SEAFOOD AND SERVICE MEAT MANAGER 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 Not on file Not on file Obstetrics History Last Filed Vital Signs Vital Sign Reading Time Taken Comments Blood Pressure 138/80 10/16/2022 10:54 AM CDT Pulse 80 10/16/2022 10:54 AM CDT Temperature 37 C (98.6 F) 10/16/2022 10:54 AM CDT Respiratory Rate 6 06/23/2019 1:00 PM SEAFOOD AND SERVICE MEAT MANAGER Oxygen Saturation 98% 10/16/2022 10: 54 AM CDT Inhaled Oxygen Concentration - - Weight 136.5 kg (300 lb 14.4 oz) 2022 10:54 AM CDT Height 193 cm (6' 4) 10/16/2022 10:54 AM CDT Body Mass Index 36.63 10/16/2022 10:54 AM CDT Plan of Treatment Health Maintenance Due Date Last Done Comments Albumin Creatinine Ratio, Urine 1960 Colon Cancer Screening-Colonoscopy 1960 Hemoglobin A1C 1960 Prostate Cancer Screening-PSA 1960 Dilated Eye Exam 1960 Lipid Panel 1960 Zoster Vaccine (1 of 2) 2012 Pneumococcal vaccine <65 (2 of 2 - PPSV23) 09/04/2021 07/10/2021 eGFR 09/10/2022 09/10/2021, 07/10/2021 Depression Screening 10/17/2023 10/16/2022 Foot Exam 10/17/2023 10/16/2022 Regular Well Visit/Exam 18-64 10/17/2023 10/16/2022 Covid-19 Vaccine (3 - 2023-2 5 season) 2024 05/31/2021, 05/10/2021 Influenza Vaccine (Season Ended) 2025 05/27/2022, 05/10/2021, 06/13/2020 DTaP/Tdap/Td Vaccine (2 - Td or Tdap) 10/10/2030 10/10/2020 Hepatitis C Screening Completed 05/20/2022 , 10/07/2021, 09/10/2021, Additional history exists Medical Devices Implanted Type Area Experimental Machinist Device Identifier Shelf Expiration Date Model / Serial / Lot [employer] Inc/C R Bard [id number] Ventralex Sepra Sorbaflex 1.7in Monofilament Self Expand Strap - [id number] Implanted:Qty: 1 on 06/23/2019 by Tucker Del Rio MD at [facility] N/A: Umbilical [employer]/C R Bard [id number] 04/30/2021 [id number] / / [id number] Procedures Procedure Name Priority Date/Time Associated Diagnosis Comments EGFR Routine 09/10/2021 11:39 AM SEAFOOD AND SERVICE MEAT MANAGER Compensated HCV cirrhosis (HCC) HEPATITIS C RNA, QUANTITATIVE, PCR Routine 07/10/2021 11:28 AM SEAFOOD AND SERVICE MEAT MANAGER Chronic hepatitis C with hepatic coma (HCC) from Last 3 Months or Most Recently Relevant to Health Maintenance Results * eGFR (09/10/2021 11:39 AM SEAFOOD AND SERVICE MEAT MANAGER) eGFR >90 90 - 130 mL/min/1. 73 m2 [facility] Comment: Interpretive Data Reference Interval Normal >/= [...] reviewed 2021. Blood 09/10/2021 11:3 9 AM SEAFOOD AND SERVICE MEAT MANAGER 09/10/2021 1:47 PM SEAFOOD AND SERVICE MEAT MANAGER us Domingo Hein MD LAB BLOOD OR DERABLES Final Result Performing Organization Address [facility] Co de Phone Number [facility] [place] [address] * Hepatitis C (HCV) RNA PCR, quantitative (07/10/2021 11:28 AM SEAFOOD AND SERVICE MEAT MANAGER) [facility] HCV RNA result Not Detected [facility] Comment: The quantifiable range of this assay is 15 IU/mL to 100,000,000 IU/mL (1.18 log IU/mL to 8.00 log IU/mL). Testing was performed by the DIANN 6800 HCV Test ([employer] Testing performed at [facility] Current Interpretive Data was last revised on 2021 Blood 07/10/2021 11:2 8 AM SEAFOOD AND SERVICE MEAT MANAGER 07/10/2021 4:13 PM SEAFOOD AND SERVICE MEAT MANAGER us Daisy FRANCOIS LAB MICROBIOLOGY - GENERAL ORDERABLES Final Result Performing Organization Address City/[facility]/ZIP Co de Phone Number [facility] of [employer] [place] [address] from Last 3 Months or Most Recently Relevant to Health Maintenance Insurance [facility] Care Teams Superannuation Funds Manager Relationship Specialty Start Date End Date Tonny Youssef MD PCP - General Family Medicine 12/02/22
--- OUTSIDE RECORDS SUMMARY | 2025-01-13 15:22 | XMS_ITS | Clinical Summary ---
Author Organization [facility] [place] Address [address] [place] [address] Phone Care Team Providers Care Driver License Reviewing Officer Name Role Phone Marshal Alves MD Primary Care Provider [phone] Allergies No known active allergies Medications lisinopril (PRINIVIL) 20 mg tablet Take 20 mg by mouth daily. Active omeprazole (PriLOSEC) 40 mg Capsule, Delayed Release(E.C.) Take 40 mg by mouth daily. Active amLODIPine (NORVASC) 5 mg tablet Take 5 mg by mouth daily. Active HYDROcodone-ibup rofen (VICOPROFEN) 7.5-200 mg Tablet Take 1 Tablet by mouth every 4 hours as needed for Pain, Moderate. Active HYDROcodone-acet aminophen (NORCO) 7.5-325 mg Tablet Take 1 Tablet by mouth every 4 hours as needed for Pain, Moderate. Active Active Problems No known active problems Social History Tobacco Use Types Packs/Day Years Used Date Smoking Tobacco: Every Day Cigarettes 1 41 Smokeless Tobacco: Former Alcohol Use Standard Drinks/Week Comments No 0 (1 standard drink = 0.6 oz pur e alcohol) recovering alcoholic Sex and Gender Information Value Date Recorded Sex Assigned at Not on file Legal Sex Male 3:45 PM CDT Gender Identity Not on file Sexual Orientation Not on file Last Filed Vital Signs Vital Sign Reading Time Taken Comments Blood Pressure 116/69 03/31/2016 6:17 PM CDT Pulse 81 03/31/2016 6:17 PM CDT Temperature 36.6 C (97.9 F) 03/31/2016 5:03 PM CDT Respiratory Rate 17 03/31/2016 6:17 PM CDT Oxygen Saturation 93% 03/31/2016 6:17 PM CDT Inhaled Oxygen Concentration - - Weight 124.7 kg (275 lb) 03/31/2016 2:01 PM CDT Height 193 cm (6' 4) 03/31/2016 2:01 PM CDT Body Mass Index 33.47 03/31/2016 2:01 PM CDT Plan of Treatment Health Maintenance Due Date Last Done Comments DTAP/TDAP/TD VACCINES (1 - Tdap) 1981 COLORECTAL SCREENING 11/07/2007 Colorectal Cancer Screening 11/07/2007 FIT-DNA Q 3 years 11/07/2007 FIT/FOBT Q 1 year 11/07/2007 Flex Sig/CT Colonography Q 5 years 11/07/2007 ZOSTER VACCINE (1 of 2) 2012 INFLUENZA VACCINE (#1) 2024 RSV VACCINE (60+ or ) (1 - 1-dose 75+ series) 2037 Medical Devices Implanted Type Area Harbor Boat Pilot Device Identifier Shelf Expiration Date Model / Serial / Lot [place] Speedbridge W/ Biocmpst Swivelck [id number] - [id number] Implanted:Qty: 1 on 03/31/2016 by Zay Nobles MD at [facility] [place] Left: Shoulder [employer] 01/30/2018 [id number]-4 / / [id number] Biocomposite Distal Bicep Repair Implanted:Qty: 1 on 03/31/2016 by Zay Nobles MD at [facility] Left: Shoulder [employer] 11/30/2017 [id number] / / [id number] Care Teams Driver License Reviewing Officer Relationship Specialty Start Date End Date Marshal Alves MD [address] [place], [place] [id number] PCP - General Family Practice 03/28/16
--- OUTSIDE RECORDS SUMMARY | 2025-01-13 15:22 | XMS_ITS | Data Portability ---
Author Organization [facility] Address [address] [place] [address] Assessment No assessment recorded. Plan of Treatment Reminders Order Date Submit Date Provider Last Modified By Organization Details Last Modified Time Details Appointments NEW PATIENT 2024 03:30P Jessie Balbuena MD Not available Not available Not available ANY 15 2024 03:00P Jessie Youssef MD Not available Not available Not available Lab lipid panel, serum [address] [place] [address], [address] [place] [address], [address] [place] [address], [address], 01/12/2025 17:50:08 testoster one, total, serum [address] [place] [address], [address] [place] [address], [address] [place] [address], [address], 01/12/2025 17:50:08 PSA, total, serum or plasma [address] [place] [address], [address] [place] [address], [address] [place] [address], [address], 12/28/2024 10:55:38 lipid panel, serum [address] [place] [address], [address] [place] [address], [address], 12/07/2024 16:47:57 testoster one, total, serum [address] [place] [address], [address] [place] [address], [address] [place] [address], [address], 12/07/2024 16:47:57 CBC w/ auto diff [address], [address] [facility] [address], [place], [address], 12/07/2024 16:47:57 CMP, serum or plasma [address], [address] [facility] [address], [place], [address], 12/07/2024 16:47:57 PSA, serum or plasma [address], [address] [facility] [address], [place], [address], 11/02/2024 09:21:53 testoster one, total, serum [address] [place] [address], [facility] [facility] [address], [place], [address], 11/02/2024 09:22:38 lipid panel, serum [address], [address], [place], [address], 11/02/2024 09:23:04 CBC w/ auto diff [address] [place] [address], [address] [facility] [address], [place], [address], 11/02/2024 09:22:48 CMP, serum or plasma [address] [place] [address], [address] [facility] [address], [place], [address], 11/02/2024 09:22:56 HbA1c (hemoglob in A1c), blood 2023 024 [facility], [address] [facility] [address], [place], [address], 12/02/2023 15:39:39 PSA, serum or plasma [address], [address] [facility] [address], [place], [address], 2023 13:05:10 lipid panel, serum [address], [address] [facility] [address], [place], [address], 2023 13:05:10 Referral cardiolog ist referral 2024 025 marine Balbuena MD, [address] [facility], [place], [address], 01/13/2025 13:42:[address] referral [address] [place] [address] Freeman Alvarez MD, [address] [facility], [address], [place], [address], 12/07/2024 16:47:[address] referral 2024 025 [email or web address] Freeman Alvarez MD, [address] [facility], [place], [address], 12/07/2024 16:47:57 gastroent erologist referral 2024 025 ramon Hanson MD, [address], [place], [address], 10/20/2024 15:42:23 Procedures None recorded. Surgeries None recorded. Imaging XR, chest, 2 view [address] (Imaging), [facility], [place], [address], 01/12/2025 17:50:08 Medication Orders Medrol (Remington) 4 mg tablets in a dose pack [address]/Pharmacy #[id number], [address], [place], [address], 01/12/2025 17:50:08 triamcino lone acetonide 40 mg/mL suspensio n for injection [address]/Pharmacy #[id number], [address], [place], [address], 01/12/2025 17:50:08 tamsulosi n 0.4 mg capsule [address]/Pharmacy #[id number], [address], [place], [address], 01/12/2025 17:50:08 meloxicam 15 mg tablet [address]/Pharmacy #[id number], [address] , [place], [address], 01/12/2025 17:50:08 omeprazol e 40 mg capsule,d elayed release [address]/Pharmacy #[id number], [address], [place], [address], 01/12/2025 17:50:08 Mounjaro 5 mg/0.5 mL subcutane ous pen injector [address]/Pharmacy #[id number], [address], [place], [address], 01/12/2025 17:50:08 losartan 50 mg tablet [address]/Pharmacy #[id number], [address], [place], [address], 01/12/2025 17:50:08 dextroamp hetamine- amphetami ne 30 mg tablet 2024 025 [id number], [address] , [place], [address], 12/07/2024 18:54:56 meloxicam 7.5 mg tablet 2024 025 [email or web address] [id number] [address] [place], [address], 12/07/2024 16:47:57 amoxicill in 875 mg-potass ium clavulana te 125 mg tablet 2024 025 [id number] [address] [place], [address], 12/06/2024 15:37:08 testoster one cypionate 200 mg/mL intramusc ular oil 2024 025 [id number], [address] [place], [address], 10/12/2024 19:03:10 dextroamp hetamine- amphetami ne 30 mg tablet 2024 025 [id number], [address] [place], [address], 10/12/2024 19:03:10 cyanocoba corbin (vit B-12) 1,000 mcg/mL injection solution 2024 025 [email or web address] [id number], [address] [place], [address], 10/12/2024 18:23:43 Mounjaro 7.5 mg/0.5 mL subcutane ous pen injector 2023 024 [email or web address] [id number] [address] [place], [address], 12/29/2023 11:03:40 testoster one cypionate 200 mg/mL intramusc ular oil 2023 024 [email or web address] [id number], [address] [facility] [place], [address], 2023 13:25:47 Patient TargetsNo targets recorded. Patient Instructions Encounter Date Encounter Id Patient Instructions Last Modified By Organization Details Last Modified Time 01/28/2024 [id number] A healthy lifestyle: care instructions Not available 01/28/2024 18:42:45 10/12/2024 [id number] A healthy lifestyle: care instructions Not available 10/12/2024 18:23:43 12/07/2024 [id number] A healthy lifestyle: care instructions Not available 12/07/2024 16:47:57 Reason for Referral Tire Fixer Referral for Screening for malignant neoplasm of colon Referring Physician: Tonny Youssef [facility], Encounter Date: 10/12/2024 Neurologist Referral for Arthur yneuropathy due to type 2 diabetes mellitus Referring Physician: Tonny Youssef [facility], Encounter Date: 12/07/2024 Neurologist Referral for Jose R betic peripheral neuropathy Referring Physician: Tonny Youssef [facility], Encounter Date: 12/07/2024 Edge Glue Machine Tender Referral for At ypical chest pain Referring Physician: Tonny Youssef [facility], Encounter Date: 01/12/2025 Problems Name Problem SNOMED Code Status Onset Date Resolution Date Notes Provider Name and Address Organization Details Recorded Time Type 2 diabetes mellitus without complicatio n 726355574 Active 2022 Tonny Youssef MD Attn: Asher metcalf,[address] [place], [address], [facility] - [facility] 3 15:21:26 Benign essential hypertensio n 2855977 Active 2022 Tonny Youssef MD Attn: Asher metcalf,[address] [place], [address], [facility] - [facility] 3 15:21:27 Gastroesoph ageal reflux disease without esophagitis 134947910 Active 2022 Tonny Youssef MD Attn: Accountin g,[address] [facility], [place], [address], [place] [facility] 3 15:21:29 Male hypogonadis m 53937445 Active 2022 Tonny Youssef MD Attn: Accountin g,[address] [facility], [place], [address], [place] [facility] 3 15:21:29 Pain of left shoulder joint 1846624603723 9109 Active 2022 Tonny Youssef MD Attn: Accountin g,[address] [facility], [place], [address], [place] [facility] 3 15:21:32 Rupture of rotator cuff of left shoulder 3645366622414 9102 Active 2022 Tonny Youssef MD Attn: Accountin g,[address] [facility], [place], [address], [place] [facility] 3 09:50:09 Obesity 778742688 Active 2022 Tonny Youssef MD Attn: Accountin g,[address] [facility], [place], [address], [place] [facility] 3 11:07:48 Hypercholes terolemia 65330380 Active 2022 Tonny Youssef MD Attn: Accountin g,[address] [facility], [place], [address], [place] [facility] 3 10:14:15 Attention deficit hyperactivi ty disorder, predominant ly inattentive type 90851678 Active 2022 Tonny Youssef MD Attn: Accountin g,[address] [facility], [place], [address], [place] [facility] 3 10:14:30 Benign prostatic hyperplasia without outflow obstruction 393377579 Active 2022 Tonny Youssef MD Attn: Accountin g,[address] [facility], [place], [address], [place] [facility] 3 11:52:56 Vitamin B12 deficiency (non anemic) 35989363 Active 2024 Tonny Youssef MD Attn: Asher metcalf,[address] [facility], [place], [address], [facility] 5 16:37:03 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 Procedures Surgical History Date Name Laterality Status Provider Name and Address Organization Details Recorded Time procedure on neck completed Alice Monroe MA [facility] 10/31/2022 14:53:17 Hernia Repair completed Calli oMnroe MA [facility] 10/31/2022 14:53:23 Knee Surgery completed Calli Monroe MA [facility] 10/31/2022 14:53:27 Tonsillectomy completed Calli Monroe MA [facility] 10/31/2022 14:53:34 Imaging Results None recorded. Procedure Notes None recorded. Medical Equipment None Reported. Allergies No known drug allergies Medications Name Sig Start Date Stop Date Status Note LastModified by Organization Details LastModified Time losartan 50 mg tablet Take 2 tablets every day by oral route for 90 days. 2024 active Not Available Not Available Not Avai lable BD Alcohol Swabs Apply 1 pad every day by topical route for 90 days. 12/07 completed Not Available Not Available Not Available doxycycline hyclate 100 mg capsule TAKE 1 CAPSULE BY MOUTH TWICE A DAY X7 DAYS 12/28 completed Not Available Not Available Not Available atorvastati n 10 mg tablet Take 1 tablet every day by oral route for 90 days. 10/12 completed Not Available Not Available Not Available benzonatate 200 mg capsule TAKE 1 CAPSULE BY MOUTH THREE TIMES A DAY NEEDED FOR COUGH 12/28 completed Not Available Not Available Not Available meloxicam 15 mg tablet Take 1 tablet every day by oral route as needed for 90 days. 2024 active Not Available Not Available Not Avai lable Medrol (Remington) 4 mg tablets in a dose pack Take 1 dose pk by oral route. 2024 active Not Available Not Available Not Avai lable simvastatin 10 mg tablet TAKE 1 TABLET BY MOUTH EVERY DAY FOR 30 DAYS 02/13 completed Not Available Not Available Not Available clindamycin HCl 150 mg capsule TAKE 1 CAPSULE BY MOUTH EVERY 6 HOURS FOR 10 DAYS 03/15 completed Not Available Not Available Not Available ciprofloxac in 500 mg tablet TAKE 1 TABLET BY MOUTH EVERY 12 HOURS FOR 10 DAYS 12/28 completed Not Available Not Available Not Available omeprazole 40 mg capsule,del ayed release Take 1 capsule every day by oral route for 90 days. 2024 active Not Available Not Available Not Avai lable tramadol 50 mg tablet TAKE 2 TABLETS BY MOUTH EVERY 8 HOURS NEEDED 12/07 completed Not Available Not Available Not Available sildenafil 100 mg tablet TAKE 1 TABLET BY MOUTH EVERY DAY NEEDED 02/04 completed Not Available Not Available Not Available glimepiride 2 mg tablet TAKE 2 TABLETS BY MOUTH EVERY MORNING WITH BREAKFAST 02/13 completed Not Available Not Available Not Available dextroamphe tamine-amph etamine 30 mg tablet Take 1 tablet twice a day by oral route for 30 days. 2024 active Not Available Not Available Not Avai lable meloxicam 7.5 mg tablet TAKE 1 TABLET BY MOUTH TWICE A DAY active Not Available Not Available No t Available tamsulosin 0.4 mg capsule Take 1 capsule every day by oral route for 90 days. 2024 active Not Available Not Available Not Avai lable amlodipine 10 mg tablet Take 1 tablet every day by oral route for 90 days. 10/12 completed Not Available Not Available Not Available triamcinolo ne acetonide 40 mg/mL suspension for injection Take 80 mg by injection route. 2024 active Not Available Not Available Not Avai lable cyanocobala min (vit B-12) 1,000 mcg/mL injection solution Inject 1 mL by subcutane ous route. 2024 active Not Available Not Available Not Avai lable dextroamphe tamine-amph etamine 20 mg tablet TAKE 1 TABLET BY MOUTH TWICE A DAY 05/08 completed Not Available Not Available Not Available metoprolol succinate ER 25 mg tablet,exte nded release 24 hr Take 1 tablet every day by oral route. 03/06 completed Not Available Not Available Not Available testosteron e cypionate 200 mg/mL intramuscul ar oil INJECT 200 MG EVERY 2 WEEKS BY INTRAMUSC ULAR ROUTE FOR 90 DAYS. active Not Available Not Available No t Available dextroamphe tamine-amph etamine ER 30 mg 24hr capsule,ext end release TAKE 1 CAPSULE BY MOUTH TWICE A DAY FOR 30 DAYS 05/08 completed Not Available Not Available Not Available lisinopril 40 mg tablet TAKE 1 TABLET BY MOUTH EVERY DAY 11/28 completed Not Available Not Available Not Available amoxicillin 875 mg-potassiu m clavulanate 125 mg tablet TAKE 1 TABLET BY MOUTH EVERY 12 HOURS FOR 10 DAYS 12/06 completed Not Available Not Available Not Available testosteron e cypionate 200 mg/mL intramuscul ar kit Inject 0.25 mL every 4 weeks by intramusc ular route. 08/07 completed Not Available Not Available Not Available tramadol 100 mg tablet Take 1 tablet every 8 hours by oral route for 30 days. 01/09 completed Not Available Not Available Not Available amphetamine ER 10 mg tablet, immediate and extended release 24 hour 06/23 completed Not Available Not Available Not Available Mounjaro 7.5 mg/0.5 mL subcutaneou s pen injector Inject 7.5 mg every week by subcutane ous route for 30 days. 12/28 completed Not Available Not Available Not Available Mounjaro 5 mg/0.5 mL subcutaneou s pen injector INJECT THE CONTENTS OF 1 PEN UNDER THE SKIN ONCE WEEKLY 2024 active Not Available Not Available Not [address] Mounjaro 10 mg/0.5 mL subcutaneou s pen injector INJECT 10 MG SUBCUTANE OUSLY ONCE WEEKLY 01/12 completed Not Available Not Available Not Available Mounjaro 12.5 mg/0.5 mL subcutaneou s pen injector active Not Available Not Available Not Available Vitals Date Recorded Body height Body mass index (BMI) Body weight Oxygen saturation Oxygen saturation in Arterial blood by Pulse oximetry Heart rate Systolic blood pressure Diastolic blood pressure Provider Name and Address Organization Details Last Updated DateTime 5 193.04 cm 30 kg/m2 709326. 12 g 99 % 99 % 100 /min 122 mm[Hg] 78 mm[Hg] Calli Monroe [place] [facility] 5 16:09:52 Date Recorded Body height Body mass index (BMI) Body weight Respiratory rate Body temperature Oxygen saturation Oxygen saturation in Arterial blood by Pulse oximetry Heart rate Systolic blood pressure Diastolic blood pressure Provider Name and Address Organization Details Last Updated DateTime 4 193.04 cm 30.9 kg/m2 722006. 46 g 16 /min 97.9 [degF] 95 % 95 % 90 /min 124 mm[Hg] 86 mm[Hg] Adilia Solomon [place] [facility] 4 10:25:47 Date Recorded Body height Body mass index (BMI) Body weight Oxygen saturation Oxygen saturation in Arterial blood by Pulse oximetry Heart rate Systolic blood pressure Diastolic blood pressure Provider Name and Address Organization Details Last Updated DateTime 5 193.04 cm 31.3 kg/m2 821998. 94 g 99 % 99 % 98 /min 130 mm[Hg] 70 mm[Hg] Calli Monroe [place] [facility] 5 15:45:21 Date Recorded Body height Body mass index (BMI) Body weight Oxygen saturation Oxygen saturation in Arterial blood by Pulse oximetry Heart rate Systolic blood pressure Diastolic blood pressure Provider Name and Address Organization Details Last Updated DateTime 5 193.04 cm 30.2 kg/m2 640441. 66 g 96 % 96 % 88 /min 124 mm[Hg] 82 mm[Hg] Bernard Castano [place] [facility] 5 16:28:58 Date Recorded Body height Oxygen saturation Oxygen saturation in Arterial blood by Pulse oximetry Heart rate Body temperature Body mass index (BMI) Body weight Systolic blood pressure Diastolic blood pressure Provider Name and Address Organization Details Last Updated DateTime 4 193.04 cm 97 % 97 % 101 /min 97.7 [degF] 29.7 kg/m2 651314. 54 g 118 mm[Hg] 70 mm[Hg] Calli Monroe [place] [facility] 4 14:10:50 Social History Question Answer Notes LastModified by Organizat ion Details LastModified Time Tobacco Smoking Status Former Smoker Calli Monroe [place] null, [place] [facility] 10/31/2022 14:54:05 What Was The Date Of Your Most Recent Tobacco Screening? 01/12/2025 [email or web address] Information not available 01/12/2025 Has Tobacco Cessation Counseling Been Provided? No Information not available 05/08/2023 Sex: Unknown Functional Status Question Answer Note LastModified by Organizat ion Details LastModified Time Do you use any illicit or recreational drugs? No Information not available 05/08/2023 Do you or have you ever used any other forms of tobacco or nicotine? No Information not available 05/08/2023 What is your level of alcohol consumption? None [email or web address] Information not available 10/31/2022 Mental Status None recorded. Family History Relationship Description Onset Age of this Age Resolved Age Notes LastModified by Organization Details LastModified Time Mother Malignant neoplasm of ovary [email or web address] Not available 2022 14:53:49 Father Diabetes mellitus [email or web address] Not available 2022 14:53:55 Medical History Condition Response Coronary Artery Disease N Other N High Blood Pressure Y Atrial Fibrillation N Thyroid Problems N Kidney or Bladder Problems N GI Problems N Depression N COPD N Blood Clots N Skin Problems N Eating Disorder N Anemia N Heart Attack (NE) N Anxiety Disorder N Diabetes Y Muscle, Joint, or Bone Problems N Seizures/Epilepsy N Acid Reflux (GERD) Y Cancer N Stroke Y Asthma N Allergies N ADHD N Substance Abuse N High Cholesterol N Hepatitis N Liver Disease Y Schizophrenia N Headaches N Heart Failure N Osteoporosis N Immunizations Vaccine Type Date Status Note Provider Nam e and Address Organization Details Recorded Time COVID-19, mRNA, LNP-S, PF, 30 mcg/0.3 mL dose 1 completed PAU Dey, [place] [facility] 06/03/2023 08:06:37 COVID-19, mRNA, LNP-S, PF, 30 mcg/0.3 mL dose 1 completed Susan Reese [place], [place] [facility] 06/03/2023 08:06:37 Pneumococcal conjugate PCV20, polysaccharide ZBV098 conjugate, adjuvant, PF 2 completed Susan Re[place], [place] [facility] 06/03/2023 08:06:37 Influenza, split virus, quadrivalent, PF 1 completed Susan Re[place], [place] [facility] 06/03/2023 08:06:37 Influenza, split virus, quadrivalent, PF 2 completed Susan Re[place], [place] [facility] 06/03/2023 08:06:37 Hep A-Hep B 0 completed Not Available [facility] 01/12/2025 16:00:09 Influenza, MDCK, quadrivalent, PF 0 completed Not Available [facility] 01/12/2025 16:00:09 Tdap 1 completed Not Available [facility] 01/12/2025 16:00:09 Hep A-Hep B 1 completed Not Available [facility] 01/12/2025 16:00:09 Hep A-Hep B 1 completed Not Available [facility] 01/12/2025 16:00:09 Pneumococcal conjugate PCV 13 1 completed Not Available [facility] 01/12/2025 16:00:09 zoster recombinant 4 completed Not Available [facility] 01/12/2025 16:00:09 Past Encounters Encounter ID Performer Location Encounter Start Date Encounter Closed Date Diagnosis/Indication Diagnosis SNOMED-CT Code Diagnosis ICD10 Code Diagnosis Note [id number] Tonny Youssef MD [facility] [address] [address] 10/31/2022 14:42:28 11/03/2022 14:55:37 Type 2 diabetes mellitus without complication 156698477 E11.9 conditoin chroinc and at goal continue the glimiperid e order hem a1c start simvastati n 10 mg per day order lipid panel order cbc, cmp Benign ess ential hypertension 3754345 I10 conditoin chronic and not at goal continue the norvasc and lisinopril and metoprolol er Gastroesop hageal reflux disease without esophagitis 559034842 K21.9 conditoin chronic and at goal continue the omeprazole Male hypogonadism 789487 06 E29.1 conditon chroinc adn at goal contieu the testostero ne order tstosteron e level. Pain of le ft shoulder joint 8424608222 6947888 M25.512 conditon chronic adn not at goal order tramadol 50 mg qid Erectile dysfunction 860 027619 F52.21 conditoin choinc and at goal order viagra gummies Screening for malignant neoplasm of prostate 789570010 Z12.5 order psa Screening for malignant neoplasm of colon 656862207 Z12.[address] hanson [id number] Tonny Youssef MD [facility] [address] [place] [address] 11/28/2022 09:27:38 12/01/2022 11:45:39 Benign essential hypertension 2247737 I10 conditoin chronic and at goal continue the norvasc and metoprolol er stop the lisinopril and start losartin 50 mg per day Gastroesop hageal reflux disease without esophagitis 193150443 K21.9 conditoin chronic and at goal continue the omeprazole Male hypogonadism 319853 06 E29.1 conditon chroinc adn at goal order testostero ne 200 mg every 2 weeks. Type 2 jose r betes mellitus without complication 909792952 E11.9 conditoin chroinc and at goal continue the glimiperid e order hem a1c start simvastati n 10 mg per day Rupture of rotator cuff of left shoulder 4856250958 4080647 M75.102 conditoin chronic adn not at goal increase the tramadol to 100 mg tid[address] refer to [facility] [place] [id number] Tonny Youssef MD [facility] [address] [place] [address] 12/12/2022 10:50:26 12/16/2022 13:20:22 Benign essential hypertension 9575975 I10 conditoin chronic and at goal continue the norvasc and metoprolol er continue losartin 50 mg per day Gastroesop hageal reflux disease without esophagitis 433615989 K21.9 conditoin chronic and at goal continue the omeprazole Male hypogonadism 695044 06 E29.1 conditon chroinc adn at goal order testostero ne 200 mg every 2 weeks. Rupture of rotator cuff of left shoulder 8841331245 3787169 M75.102 conditoin chronic adn not at goal increase the tramadol to 100 mg tid. refer to [facility] [place] Type 2 jose r betes mellitus without complication 686169787 E11.9 conditoin chroinc and at goal continue the glimiperid e order hem a1c start simvastati n 10 mg per day Obesity 718337416 E66.9 conditino chronic and not at goal continue hte 1800 ada breezy diet. [id number] Tonny Youssef MD [address] [address] 01/09/2023 10:27:19 01/13/2023 08:40:20 Obesity 155534525 E66.9 conditino chronic and not at goal continue hte 1800 ada breezy diet. Benign ess ential hypertension 8670097 I10 conditoin chronic and at goal continue the norvasc and metoprolol er continue losartin 50 mg per day order cbc, cmp Gastroesop hageal reflux disease without esophagitis 287531456 K21.9 conditoin chronic and at goal continue the omeprazole Male hypogonadism 853456 06 E29.1 conditon chroinc adn at goal order testostero ne 200 mg every 2 weeks. Rupture of rotator cuff of left shoulder 6568571299 5853393 M75.102 conditoin chronic adn not at goal increase the tramadol to 100 mg tid. refer to [facility] [place] Type 2 jose r betes mellitus without complication 792718141 E11.9 conditoin chroinc and not under control stop the glimiperid e adn start monjero 5 mg per day. Screening for malignant neoplasm of prostate 739825495 Z12.5 order psa Cholesterol screening 27 1173537 Z13.220 order lipid panel Screening for malignant neoplasm of colon 646714206 Z12.[address] cruz [id number] Tonny Youssef MD [facility] [address] [place] [address] 02/13/2023 09:36:52 02/17/2023 09:53:45 Type 2 diabetes mellitus without complication 067669912 E11.9 conditoin chroinc and not under control increase the monjero to 7.5 mg Benign ess ential hypertension 0597805 I10 conditoin chronic and not at goal continue the norvasc and metoprolol er and increase the losartin to 100 mg per day Gastroesop hageal reflux disease without esophagitis 348613546 K21.9 conditoin chronic and at goal continue the omeprazole Male hypogonadism 178665 06 E29.1 conditon chroinc adn at goal order testostero ne 200 mg every 2 weeks. Rupture of rotator cuff of left shoulder [id number] 5927022 M75.102 conditoin chronic adn not at goal continue the tramadol to 100 mg tid[address] refer to dr west at [facility] [id number] E66.9 conditino chronic and not at goal continue hte 1800 ada breezy diet. Hypercholesterolemia 136 02214 E78.00 conditoin chrinc adn at goal stop the simvastati n and start atorvastat in 10 mg per day Attention deficit hyperactivity disorder, predominantly inattentive type 63637738 F90.0 conditon chroinc and not at goal has been on adderal in the past and it worked. the add is getting worse. start adderal 30 mg bid [id number] Tonny Youssef MD [facility] [address] [address] [place] [address] 03/06/2023 10:23:01 03/10/2023 15:23:55 Attention deficit hyperactivity disorder, predominantly inattentive type 67896330 F90.0 conditon chroinc and not at goal has been on adderal in the past and it worked. the add is getting worse. start adderal 30 mg bid Benign ess ential hypertension 1590432 I10 conditoin chronic and not at goal continue the norvasc and metoprolol er and increase the losartin to 100 mg per day Gastroesop hageal reflux disease without esophagitis 445473698 K21.9 conditoin chronic and at goal continue the omeprazole Hypercholesterolemia 136 15130 E78.00 conditoin chrinc adn at goal stop the simvastati n and start atorvastat in 10 mg per day Male hypogonadism 735550 06 E29.1 conditon chroinc adn at goal order testostero ne 200 mg every 2 weeks. order testostero ne level. Type 2 jose r betes mellitus without complication 445184498 E11.9 conditoin chroinc and not under control increase the monjero to 7.5 mg Benign pro static hyperplasia without outflow obstruction 710464801 N40.0 condiotn chroinc and not at goal order psa Obesity 388374345 E66.9 conditino chronic and not at goal continue hte 1800 ada breezy diet. [id number] Tonny Youssef MD [facility] [address] [place] [address] 04/10/2023 11:21:24 04/15/2023 15:06:26 Attention deficit hyperactivity disorder, predominantly inattentive type 95460435 F90.0 conditon chroinc and not at goal has been on adderal in the past and it worked. the add is getting worse. increase the adderal to 40 mg bid immediate release Benign ess ential hypertension 3375026 I10 conditoin chronic and not at goal continue the norvasc and metoprolol er and increase the losartin to 100 mg per day Benign pro static hyperplasia without outflow obstruction 651446433 N40.0 condiotn chroinc and not at goal order psa Gastroesop hageal reflux disease without esophagitis 148443243 K21.9 conditoin chronic and at goal continue the omeprazole Type 2 jose r betes mellitus without complication 619015541 E11.9 conditoin chroinc and not under control increase the monjero to 7.5 mg Male hypogonadism 595929 06 E29.1 conditon chroinc adn at goal order testostero ne 200 mg every 2 weeks. order testostero ne level. Hypercholesterolemia 136 39607 E78.00 conditoin chrinc adn at goal stop the simvastati n and continue atorvastat in 10 mg per day [id number] Tonny Youssef MD [facility] [address] [facility] [address] [place] [address] 05/08/2023 14:49:37 05/11/2023 09:47:48 Attention deficit hyperactivity disorder, predominantly inattentive type 50277547 F90.0 conditon chroinc and not at goal has been on adderal in the past and it worked. the add is getting worse. increase the adderal to 40 mg bid immediate release Benign ess ential hypertension 2622068 I10 conditoin chronic and not at goal continue the norvasc and metoprolol er and increase the losartin to 100 mg per day Benign pro static hyperplasia without outflow obstruction 799583428 N40.0 condiotn chroinc and not at goal order psa Gastroesop hageal reflux disease without esophagitis 085595470 K21.9 conditoin chronic and at goal continue the omeprazole Hypercholesterolemia 136 89030 E78.00 conditoin chrinc adn at goal stop the simvastati n and continue atorvastat in 10 mg per day Male hypogonadism 650226 06 E29.1 conditon chroinc adn at goal order testostero ne 200 mg every 2 weeks. order testostero ne level. Type 2 jose r betes mellitus without complication 908060636 E11.9 conditoin chroinc and not under control increase the monjero to 7.5 mg Screening for malignant neoplasm of prostate 931498560 Z12.5 order psa [id number] Tonny Youssef MD [facility] [address] [place] [address] [address] [place] [address] 06/04/2023 14:59:39 06/08/2023 13:45:34 Attention deficit hyperactivity disorder, predominantly inattentive type 50359211 F90.0 conditon chroinc and not at goal has been on adderal in the past and it worked. the adderal to 40 mg bid immediate release Benign ess ential hypertension 4064073 I10 conditoin chronic and not at goal continue the norvasc and metoprolol er and continue the losartin to 100 mg per day Gastroesop hageal reflux disease without esophagitis 557702074 K21.9 conditoin chronic and at goal continue the omeprazole Type 2 jose r betes mellitus without complication 046824799 E11.9 conditoin chroinc and not under control increase the monjero to 7.5 mg Male hypogonadism 837719 06 E29.1 conditon chroinc adn at goal order testostero ne 200 mg every 2 weeks. Acute epididymitis 25483 000 N45.1 N44.00 conditon acute stat testicular us start cipro for 10 days. [id number] Tonny Youssef MD [facility] [address] [address] [place] [address] 08/07/2023 14:51:45 08/10/2023 14:59:31 Type 2 diabetes mellitus without complication 605195235 E11.9 conditoin chroinc and not under control continue the monjero to 7.5 mg Male hypogonadism 082849 06 E29.1 conditon chroinc adn at goal order testostero ne 200 mg every 2 weeks. Gastroesop hageal reflux disease without esophagitis 108605228 K21.9 conditoin chronic and at goal continue the omeprazole Benign ess ential hypertension 3022153 I10 conditoin chronic and not at goal continue the norvasc and metoprolol er and continue the losartin to 100 mg per day Attention deficit hyperactivity disorder, predominantly inattentive type 95710516 F90.0 conditon chroinc and not at goal has been on adderal in the past and it worked. refill adderal to 40 mg bid immediate release Benign pro static hyperplasia without outflow obstruction 505280524 N40.0 condiotn chroinc and not at goal [id number] Tonny Youssef MD [facility] [address] [place] [address] [place] [address] 2023 09:57:00 11/09/2023 10:46:10 Attention deficit hyperactivity disorder, predominantly inattentive type 67471488 F90.0 conditon chroinc and not at goal has been on adderal in the past and it worked. refill adderal to 40 mg bid immediate release my rx Benign ess ential hypertension 3829734 I10 conditoin chronic and not at goal continue the norvasc and metoprolol er and continue the losartin to 100 mg per day my rx order cbc, cmp Hypercholesterolemia 136 57313 E78.00 conditoin chrinc adn at goal atorvastat in 10 mg per day my rx order lipid panel Gastroesop hageal reflux disease without esophagitis 236154010 K21.9 conditoin chronic and at goal continue the omeprazole my rx Type 2 jose r betes mellitus without complication 109645384 E11.9 conditoin chroinc and not under control continue the monjero to 7.5 mg my rx Male hypogonadism 166890 06 E29.1 conditon chroinc adn at goal order testostero ne 200 mg every 2 weeks. my rx order psa Pain of le ft shoulder joint 6123874005 1524950 M25.512 conditon chronic adn not at goal order tramadol 50 mg qid my rx order hem a1c [id number] Tonny Youssef MD [facility] [address] [place] [address] [address] [place] [address] 01/28/2024 14:04:07 01/29/2024 13:14:34 Infection of sebaceous cyst 392905519 L72.3 condition acute I & D with packing. hte cyst is prepped and draped in a sterile fashion 1% lidocaine without epi is used to achieve analgesia via a wheal after analgesia the cyst is opened with a #11 blade and a large amount of pus nad sebum is expelled. the cyst is then packed iwth 1/4 iodoform gauze and routine wound care order clindamyci n Overweight 334926881 E66 .3 conditoin chroinc adn not at goal start low fat diet. [id number] Tonny Youssef MD [facility] [place] [address] [facility] [address] [place] [address] 10/12/2024 15:59:45 10/13/2024 13:26:38 Attention deficit hyperactivity disorder, predominantly inattentive type 34283520 F90.0 conditon chroinc and at goal refill adderal to 40 mg bid immediate release my rx Male hypogonadism 225431 06 E29.1 conditon chroinc adn at goal order testostero ne 200 mg every 2 weeks. my rx order psa, testostero ne level Benign ess ential hypertension 0549291 I10 conditoin chronic and not at goal continue the norvasc and metoprolol er and continue the losartin to 100 mg per day my rx order cbc, cmp Gastroesop hageal reflux disease without esophagitis 129714636 K21.9 conditoin chronic and at goal continue the omeprazole my rx Type 2 jose r betes mellitus without complication 686992997 E11.9 conditoin chroinc and not under control continue the monjero to 7.5 mg my rx Obesity 224314791 E66.9 conditino chronic and not at goal continue hte 1800 ada breezy diet. Benign pro static hyperplasia without outflow obstruction 070211185 N40.0 condiotn chroinc and not at goal Cholesterol screening 27 1883462 Z13.220 order lipid panel Cough 96057877 R05.9 conditoin acute order augmentin for 10 days Screening for malignant neoplasm of colon 906653136 Z12.[address] hanson Vitamin B1 2 deficiency (non anemic) 00398742 E53.8 conditon chronic and at goal order 1000 mcg b12 0130105 Tonny Youssef MD [facility] [address] [facility] [address] [place] [address] 12/07/2024 15:38:12 12/08/2024 10:27:27 Benign essential hypertension 7431643 I10 conditoin chronic and at goal continue the norvasc and metoprolol er and continue the losartin to 100 mg per day my rx order cbc, cmp Attention deficit hyperactivity disorder, predominantly inattentive type 68149738 F90.0 conditon chroinc and at goal refill adderal to 40 mg bid immediate release my rx Benign pro static hyperplasia without outflow obstruction 543775862 N40.0 condiotn chroinc and not at goal continue the flomax and order psa Gastroesop hageal reflux disease without esophagitis 521285013 K21.9 conditoin chronic and at goal continue the omeprazole my rx Male hypogonadism 685189 06 E29.1 conditon chroinc adn at goal order testostero ne 200 mg every 2 weeks. my rx order testostero ne level Obese class I 1313238243 93788 E66.811 conditino chronic and not at goal continue hte 1800 ada breezy diet. Diabetic p eripheral neuropathy 264108031 E11.42 condition acute refer to dr dixon walters Hypercholesterolemia 136 50519 E78.00 conditoin chrinc adn at goal atorvastat in 10 mg per day my rx order lipid panel Pain of le ft shoulder joint 8840596450 5201662 M25.512 conditon chronic adn not at goal d/c the tramadol order meloxicam bid Polyneurop athy due to type 2 diabetes mellitus 552778774 E11.42 condition acute refer to dr dixon walters continue the monjero 5 mg weekly Vitamin B1 2 deficiency (non anemic) 04842203 E53.8 conditon chronic and at goal order 1000 mcg b12 6801825 Tonny Youssef MD [facility] [place] [facility] [place] [facility] [address] [facility] [address] [facility] [address] 01/12/2025 15:57:50 01/13/2025 11:24:45 Pleuritic pain 2875966 R07.81 conditon acute kenalog 80 mg, medrol dose pack, order cxr at a Atypical chest pain 1025 51114 R07.89 condition acute refer to dr balbuena Benign ess ential hypertension 7999486 I10 conditoin chronic and at goal continue the norvasc and metoprolol er and continue the losartin to 100 mg per day my rx Hypercholesterolemia 136 23267 E78.00 conditoin chrinc adn at goal atorvastat in 10 mg per day my rx order lipid panel Type 2 jose r betes mellitus 81813650 E11.9 conditoin chroinc and not under control continue the monjero to 7.5 mg my rx Male hypogonadism 151591 06 E29.1 conditon chroinc adn at goal order testostero ne 200 mg every 2 weeks. my rx order testostero ne level Type 2 jose r betes mellitus without complication 606456535 E11.9 conditoin chroinc and not under control continue the monjero to 7.5 mg my rx Gastroesop hageal reflux disease without esophagitis 213624519 K21.9 conditoin chronic and at goal continue the omeprazole my rx Renewal of prescription 185197141 Z76.0 order flomax Pain of le ft shoulder joint 6998255466 4075324 M25.512 conditon chronic adn not at goal d/c the tramadol order meloxicam bid Vitamin B1 2 deficiency (non anemic) 87202604 E53.8 conditon chronic and at goal order 1000 mcg b12 Health Concerns Section Related Observation LastModified by Organization Detai ls LastModified Time None Recorded Concern Status LastModified by Organization Details LastModified Time None Recorded Advance Directives Directive None Recorded Payers Insurance Date Sequence Insurance Name Policy Number Policy Gray Covered Member ID Gray Member ID Guarantor Name 01/12/2025 1 [employer] [id number] Gibson Marie [id number] Gibson Marie Notes Date Note Type Note Provider Name and Address Organization Details Recorded Time 2023 text/html states that he i s doing good and the pain is udner control greg add is under control the htn and the bph is under conrorl the gerd is under control ad the bs are under control the shoulder is under control the chol is stable Tonny Youssef MD Attn: Accounting, [address] [place], [address], [facility] 2023 13:25:51 01/28/2024 text/html states that he h as a large painful cyst ot he left upper back that is growing nad more painful Tonny Youssef MD Attn: Accounting, [address] [place], [address], [facility] 01/28/2024 18:43:27 10/12/2024 text/html states that he i s doing good the add adn the htn is under control the bs are under contorl the gerd is under control has been watching his diet. Tonny Youssef MD Attn: Accounting, [address] [place], [address], [facility] 10/12/2024 19:03:12 12/07/2024 text/html states that the add is under control and the monjero is working the neuropathy in the feet is getting worse. the htn is under control the chol and the testosterone is stable the b12 is under control Tonny Youssef MD Attn: Accounting, [address] [place], [address], [facility] 12/07/2024 18:54:58 01/12/2025 text/html states that he h as been having pain in the left lower chest when taking a deep breath. the add is under contorl hte htn is under ocntl trhte bs are stable the chol is under control Tonny Youssef MD Attn: Accounting[address] [facility], [place], [address], [place] [facility] 01/12/2025 18:42:12
--- OUTSIDE RECORDS SUMMARY | 2025-01-13 15:22 | XMS_ITS | Continuity of Care Document ---
Author Organization [facility] Address [address] [place] [address] Assessment No assessment recorded. Plan of Treatment Reminders Order Date Submit Date Provider Last Modified By Organization Details Last Modified Time Details Appointments NEW PATIENT 15 2024 03:30P Jessie Balbuena MD Not available Not available Not available ANY 15 2024 03:00P Jessie Youssef MD Not available Not available Not available Lab lipid panel, serum [address], [facility] [facility], [place], [address], 01/12/2025 17:50:08 testoster one, total, serum [address], [address], [place], [address], 01/12/2025 17:50:08 Referral cardiolog ist referral 2024 025 marine Balbuena MD, [address], [place], [address], 01/13/2025 13:42:29 Procedures None recorded. Surgeries None recorded. Imaging XR, chest, 2 view [address] (Imaging), [facility] [address], [place], [address], 01/12/2025 17:50:08 Medication Orders Medrol ([place]) 4 mg tablets in a dose pack 2024 [id number] , [place], [address], 01/12/2025 17:50:08 triamcino lone acetonide 40 mg/mL suspensio n for injection 2024 025 [id number], [address] [place], [address], 01/12/2025 17:50:08 tamsulosi n 0.4 mg capsule 2024 [address]25 [id number], [address] [place], [address], 01/12/2025 17:50:08 meloxicam 15 mg tablet 2024 025 [id number], [address] [place], [address], 01/12/2025 17:50:08 omeprazol e 40 mg capsule,d elayed release 2024 025 [id number], [address] [place], [address], 01/12/2025 17:50:08 Mounjaro 5 mg/0.5 mL subcutane ous pen injector 2024 025 [id number], [address] [place], [address], 01/12/2025 17:50:08 losartan 50 mg tablet 2024 025 [id number], [address] [place], [address], 01/12/2025 17:50:08 Patient TargetsNo targets recorded. Patient InstructionsNo instructions recorded. Reason for Referral [employer] Referral for At ypical chest pain Referring Physician: Tonny Youssef, [facility], Encounter Date: 01/12/2025 Problems Name Problem SNOMED Code Status Onset Date Resolution Date Notes Provider Name and Address Organization Details Recorded Time Type 2 diabetes mellitus without complicatio n 066105718 Active 2022 Tonny Youssef MD Attn: Asher metcalf,[address] [place], [address], [place] [facility] 3 15:21:26 Benign essential hypertensio n 7939474 Active 2022 Tonny Youssef MD Attn: Asher metcalf,[address] [place], [address] [facility] 15:21:27 Gastroesoph ageal reflux disease without esophagitis 930158855 Active 2022 Tonny Youssef MD Attn: Asher metcalf,[address] [place], [address], [place] [facility] 3 15:21:29 Male hypogonadis m 02316838 Active 2022 Tonny Youssef MD Attn: Asher metcalf,[address] [place], [address], [place] [facility] 3 15:21:29 Pain of left shoulder joint 7725480845520 9109 Active 2022 Tonny Youssef MD Attn: Asher metcalf,[address] [place], [address], [place] [facility] 3 15:21:32 Rupture of rotator cuff of left shoulder 9653875336046 9102 Active 2022 Tonny Youssef MD Attn: Asher metcalf,[address] [place], [address], [place] [facility] 3 09:50:09 Obesity 507558544 Active 2022 Tonny Youssef MD Attn: Asher metcalf,[address] [place], [address], [place] [facility] 3 11:07:48 Hypercholes terolemia 74448726 Active 2022 Tonny Youssef MD Attn: Asher dixon,[address] [facility], [place], [address], [place] [facility] 3 10:14:15 Attention deficit hyperactivi ty disorder, predominant ly inattentive type 26409445 Active 2022 Tonny Youssef MD Attn: Asher dixon,[address] [facility], [place], [address], [place] [facility] 3 10:14:30 Benign prostatic hyperplasia without outflow obstruction 021273716 Active 2022 Tonny Youssef MD Attn: Calivernon metcalf,[address] [facility], [place], [address], [place] [facility] 3 11:52:56 Vitamin B12 deficiency (non anemic) 24109666 Active 2024 Tonny Youssef MD Attn: Asher metcalf,[address] [facility], [place], [address], [place] [facility] 5 16:37:03 Polyneuropa thy due to type 2 diabetes mellitus 371050014 Active 2024 Tonny Youssef MD Attn: Asher metcalf,[address] [facility], [place], [address], [place] [facility] 5 15:55:16 Problem Notes None recorded. Procedures Surgical History Date Name Laterality Status Provider Name and Address Organization Details Recorded Time procedure on neck completed Alice Monroe MA [facility] 10/31/2022 14:53:17 Hernia Repair completed Calli Monroe MA [facility] 10/31/2022 14:53:23 Knee Surgery completed PAU Banks [facility] 10/31/2022 14:53:27 Tonsillectomy completed PAU Banks [facility] 10/31/2022 14:53:34 Imaging Results None recorded. Procedure [...] hours by oral route for 30 days. 01/093 completed Not Available Not Available Not Available [...] Not Available Not Available Not Avai lable Mounjaro 10 mg/0.5 mL subcutaneou s pen [...] and Address Organization Details Last Updated DateTime 193.04 cm 30.2 kg/m2 096813. 66 g 96 % 96 % 88 /min 124 mm[Hg] 82 mm[Hg] Bernard Castano MA [facility] 16:28:58 Social History Question Answer Notes LastModified by [employer] ion Details LastModified Time Tobacco Smoking Status Former Smoker Calli Monroe MA [facility], [facility] 10/31/2022 14:54:05 What Was The Date Of [...] Eating Disorder N Anemia N Heart Attack ([place]) N Anxiety Disorder N Diabetes Y Muscle, [...] [place], [place] [facility] 06/03/2023 08:06:37 Pneumococcal conjugate PCV20, polysaccharide [id number] conjugate, adjuvant, PF 2 completed [place] [facility] 06/03/2023 08:06:37 Influenza, split virus, quadrivalent, PF 1 [place] [facility] 06/03/2023 08:06:37 Influenza, split virus, quadrivalent, PF 2 [place] [facility] 06/03/2023 08:06:37 Hep A-Hep B 0 completed Not Available [facility] 01/12/2025 16:00:09 Influenza, MDCK, quadrivalent, PF 0 completed Not Available [facility] 01/12/2025 16:00:09 Tdap 1 completed Not Available [facility] 01/12/2025 16:00:09 Hep A-Hep B 1 completed Not Available [facility] 01/12/2025 16:00:09 Hep A-Hep B 1 completed Not Available [facility] 01/12/2025 16:00:09 Pneumococcal conjugate PCV 13 1 completed Not Available [facility] 01/12/2025 16:00:09 zoster recombinant 4 completed Not Available [facility] 01/12/2025 16:00:09 Past Encounters Encounter ID Performer Location Encounter Start Date Encounter Closed Date Diagnosis/Indication Diagnosis SNOMED-CT Code Diagnosis ICD10 Code Diagnosis Note [id number] Tonny Youssef MD [facility] - [facility] [place] [address] [place] [address] 01/12/2025 15:57:50 01/13/2025 11:24:45 Pleuritic pain 7464969 R07.81 conditon acute kenalog 80 mg, medrol dose pack, order cxr at [facility] Atypical chest pain 1025 46455 R07.89 condition acute refer to dr balbuena Benign ess ential hypertension 3636258 I10 conditoin chronic and at goal continue the norvasc and metoprolol er and continue the losartin to 100 mg per day my rx Hypercholesterolemia 136 41039 E78.00 conditoin chrinc adn at goal atorvastat in 10 mg per day my rx order lipid panel Type 2 jose r betes mellitus 15098846 E11.9 conditoin chroinc and not under control continue the monjero to 7.5 mg my rx Male hypogonadism 632919 06 E29.1 conditon chroinc adn at goal order testostero ne 200 mg every 2 weeks. my rx order testostero ne level Type 2 jose r betes mellitus without complication 996888011 E11.9 conditoin chroinc and not under control continue the monjero to 7.5 mg my rx Gastroesop hageal reflux disease without esophagitis 085718360 K21.9 conditoin chronic and at goal continue the omeprazole my rx Renewal of prescription 480569395 Z76.0 order flomax Pain of le ft shoulder joint 2477653150 9546636 M25.512 conditon chronic adn not at goal d/c the tramadol order meloxicam bid Vitamin B1 2 deficiency (non anemic) 40080881 E53.8 conditon chronic and at goal order 1000 mcg b12 Health Concerns Section Related Observation LastModified by Organization Detai ls LastModified Time None Recorded Concern Status LastModified by Organization Details LastModified Time None Recorded Payers Encounter Date Sequence Insurance Name Policy Number Policy Gray Covered Member ID Gray Member ID Guarantor Name 01/12/2025 1 [employer] [id number] Gibson Hodge Lenintony [id number] Gibson Helmsgilberto Notes Date Note Type Note Provider Name and Address Organization Details Recorded Time 01/12/2025 text/html states that he has been having pain in the left lower chest when taking a deep breath. the add is under contorl hte htn is under ocntl trhte bs are stable the chol is under control Tonny Youssef MD Attn: [address] [place], [address], [facility] 01/12/2025 18:42:12
[2025-01-13 16:07] LABS: D Dimer 0.51 ug/mL (<0.48)
== END 2025-01-13 15:17 | disposition home or self-care (01) ==
LOC: ANHLAB 15:21
PROVIDERS: PCP Family Medicine; Visit Provider Family Medicine
DX: R07.81 Pleurodynia (principal); I10 Essential (primary) hypertension
CPT/HCPCS: 36415; 71046; 85380

== ENCOUNTER 2025-03-22 11:50 | Outpatient (CLI) | payer OTHER, SELFPAY ==
[2025-03-22 12:29] LABS: Hematocrit 45.5 % (42.0-52.0); Hemoglobin 15.1 g/dL (14.0-18.0); Mean Corpuscular HGB Conc 33.2 g/dl (32-36); Mean Corpuscular Hemoglobin 25.6 pg (26-34); Mean Corpuscular Volume 77.2 fl (80-100); Platelet Count Result 185 k/mm3 (150-375); Red Blood Count 5.89 M/mm3 (4.6-6.20); White Blood Count 9.9 K/mm3 (4.5-10.0)
[2025-03-22 12:49] LABS: Alanine Aminotransferase 36 U/L (6-50); Albumin Level 4.3 g/dL (3.5-5.1); Alkaline Phosphatase 117 U/L (38-126); Anion Gap 6 mmol/L (4-12); Aspartate Amino Transferase 33 U/L (17-59); Bilirubin,Total 1.3 mg/dL (0.2-1.3); Blood Urea Nitrogen 15 mg/dL (9-20); Calcium 9.3 mg/dL (8.4-10.2); Carbon Dioxide 28 mmol/L (22-30); Chloride 104 mmol/L (98-107); Cholesterol 217 mg/dL (0-200); Estimated Glomerular Filt Rate > 60; Glucose 185 mg/dL (65-110); HDL Direct 37 mg/dL; Potassium 3.9 mmol/L (3.4-5.0); Sodium 138 mmol/L (137-145); Total Protein 7.3 g/dL (6.3-8.2); Triglycerides 216 mg/dL (<150)
[2025-03-31 18:07] LABS: Testosterone, Total, LC/MS 543 ng/dL (.)
== END 2025-03-22 11:51 | disposition home or self-care (01) ==
PROVIDERS: PCP Family Medicine; Visit Provider Internal Medicine Interventional Cardiology
DX: E29.1 Testicular hypofunction (principal); I10 Essential (primary) hypertension; E11.9 Type 2 diabetes mellitus without complications; R07.2 Precordial pain
CPT/HCPCS: 36415; 80053; 80061; 84403; 85027